=== PATIENT | female | born 1940 | race Caucasian/White ===

== ENCOUNTER 2020-12-05 14:24 | Outpatient (RCR) | payer MEDICARE, SELFPAY | END 2020-12-09 15:59 | disposition home or self-care (01) | LOC: HO.WCC 14:24 | PROVIDERS: PCP Internal Medicine; Visit Provider Physician Assistant | DX: L82.1 Other seborrheic keratosis (principal); Q66.89 Other specified congenital deformities of feet; H91.90 Unspecified hearing loss, unspecified ear; E11.9 Type 2 diabetes mellitus without complications | CPT/HCPCS: 99211 ==

== ENCOUNTER → 2021-03-02 10:42 | Outpatient (BNVA) | payer MEDICARE, SELFPAY | PROVIDERS: PCP Internal Medicine; Visit Provider Surgery Vascular Surgery | DX: I83.11 Varicose veins of right lower extremity with inflammation (principal); I89.0 Lymphedema, not elsewhere classified | CPT/HCPCS: 99212 ==

== ENCOUNTER 2021-03-14 10:10 | Outpatient (REF) | payer MEDICARE, SELFPAY ==
--- NOTE | ~2021-03-14 | US_ITS ---
EXAMINATION: BILATERAL LOWER EXTREMITY VENOUS ULTRASOUND (Reflux Exam) CLINICAL INDICATION: Lower extremity varicose veins. History of prior vein procedures. COMPARISON: Left lower extremity venous Doppler ultrasound on 09/18/2017. TECHNIQUE: Color flow triplex imaging and compression Doppler was performed to evaluate both the deep and the superficial systems bilaterally. To evaluate the superficial system, the examination was performed in the upright position. Color-flow Doppler ultrasound and compression ultrasound were utilized. In addition, maneuvers were utilized to demonstrate reflux. FINDINGS: 1. DEEP VENOUS ULTRASOUND OF THE RIGHT LOWER EXTREMITY: Common Femoral Vein: Compressible, normal respiratory variation and augmented flow. Femoral vein: Compressible, normal color flow and augmentation. Popliteal Vein: Compressible, normal augmentation. Deep Reflux: There is no evidence of reflux in the deep system in either the common femoral vein or the popliteal vein. There is no evidence of a Babcock's cyst. Notice made of a right suprapatellar knee effusion. 2. SUPERFICIAL ULTRASOUND WITH DOPPLER OF RIGHT LOWER EXTREMITY GREAT SAPHENOUS VEIN: The great saphenous vein at the junction measures 0.3 cm without evidence of reflux. The remainder of the great saphenous vein on the right is not visualized. DUPLICATED GREAT SAPHENOUS VEIN: Lateral, 0.3 cm, no reflux. SMALL SAPHENOUS VEIN: Saphenopopliteal junction: 0.3 cm; greater than 2.5 seconds of reflux. The small saphenous vein at the mid calf and distal calf is not visualized. VEIN OF GIACOMINI: None Imaged. PERFORATORS: None Imaged VARICOSITIES: Right proximal calf, 0.4 cm, greater than 1.3 seconds of reflux. Small varicosities measuring less than 3 mm are seen arising from the great saphenous vein remnant. 3. DEEP VENOUS ULTRASOUND OF THE LEFT LOWER EXTREMITY: Common Femoral Vein: Compressible, normal respiratory variation and augmented flow. Femoral vein: Compressible, normal color flow and augmentation. Popliteal Vein: Compressible, normal augmentation. Deep Reflux: There is no evidence of reflux in the deep system in either the common femoral vein or the popliteal vein. There is no evidence of a Babcock's cyst. 4. SUPERFICIAL ULTRASOUND WITH DOPPLER OF LEFT LOWER EXTREMITY GREAT SAPHENOUS VEIN: The great saphenous vein at the junction measures 0.4 cm without evidence of reflux. The remainder of the great saphenous vein on the left is not visualized. DUPLICATED GREAT SAPHENOUS VEIN: None SMALL SAPHENOUS VEIN: Saphenopopliteal junction: 0.4 cm; No evidence of reflux. The small saphenous vein at the mid calf and distal calf is not visualized. VEIN OF GIACOMINI: None Imaged. PERFORATORS: None Imaged. VARICOSITIES: Small sub-3 mm varicosities are seen involving the distal thigh and calf. US/US venous duplex LE BI IMPRESSION: 1. The right great saphenous vein is patent at the junction, however, is not seen distally within the thigh. Small sub-3 mm varicosities arise from the remnant proximal great saphenous vein. 2. Right small saphenous venous insufficiency at the junction. The right small saphenous vein is not seen at the mid calf and distal calf on the right. 3. The left great saphenous vein is not visualized beyond the junction. 4. There is a refluxing varicosity within the right proximal calf. 5. There are sub-3 mm varicosities seen throughout both legs. 6. No evidence of DVT or deep reflux.
== END 2021-03-14 10:11 | disposition home or self-care (01) ==
LOC: HO.US 10:10
PROVIDERS: Visit Provider Surgery Vascular Surgery
DX: I83.893 Varicose veins of bilateral lower extremities with other complications (principal)
CPT/HCPCS: 93970

== ENCOUNTER → 2021-03-28 11:05 | Outpatient (BNVA) | payer MEDICARE, SELFPAY | PROVIDERS: PCP Internal Medicine; Visit Provider Surgery Vascular Surgery | DX: I83.11 Varicose veins of right lower extremity with inflammation (principal) | CPT/HCPCS: 99212 ==

== ENCOUNTER → 2021-06-27 10:50 | Outpatient (BNVA) | payer MEDICARE, SELFPAY | PROVIDERS: PCP Internal Medicine; Visit Provider Surgery Vascular Surgery | DX: I89.0 Lymphedema, not elsewhere classified (principal) | CPT/HCPCS: 99212 ==

== ENCOUNTER 2021-09-21 09:23 | Outpatient (REF) | payer MEDICARE, SELFPAY ==
[2021-09-21 10:06] LABS: MANUAL DIFF FLAG NO
[2021-09-21 10:50] LABS: Basophils Absolute Auto 0.1 X10*3/uL (0.0-0.2); Basophils Percent Auto 0.8 % (0-2); Eosinophils Absolute Auto 0.3 X10*3/uL (0.0-0.4); Eosinophils Percent Auto 4.4 % (0-4); Hematocrit 35.4 % (37-47); Hemoglobin 11.5 g/dl (12.0-16.0); Imm Gran Abs Auto 0.03 X10*3/uL (0.00-0.03); Imm Gran Pct Auto 0.5 % (0.0-0.4); Lymphocytes Percent Auto 17.3 % (20-40); Mean Corpuscular HGB Conc 32.5 g/dl (31.0-35.0); Mean Corpuscular Hemoglobin 29.3 pg (27.0-33.0); Mean Corpuscular Volume 90.3 fL (80-98); Monocytes Absolute Auto 0.7 X10*3/uL (0.1-1.2); Monocytes Percent Auto 11.5 % (2-11); Neutrophils Absolute Auto 3.9 X10*3/uL (2.0-8.3); Neutrophils Percent Auto 65.5 % (45-73); Platelet Count 279 X10*3/uL (160-400); Red Blood Count 3.92 X10*6/uL (4.20-5.50); Red Cell Distribution Width 16.1 % (11.0-16.0); White Blood Count 5.9 X10*3/uL (4.8-10.8)
[2021-09-21 11:16] LABS: Appearance Urine CLOUDY; Color Urine YELLOW; Glucose Urine UA NEG (NEG); Leukocyte Esterase Urine 3+ (NEG); Nitrite Urine POS (NEG); PH 6.5 (5.0-8.0); Specific Gravity - Urine 1.015 (1.005-1.025); UACC Culture Trigger YES; Urine Blood 1+ (NEG); Urine Ketones NEG (NEG); Urine Protein TRACE MG/DL (NEG-TRACE)
[2021-09-21 11:24] LABS: Alanine Aminotransferase 10 U/L (0-31); Albumin Level 4.1 g/dL (3.5-5.0); Alkaline Phosphatase 74 U/L (39-117); Anion Gap 11 (12-20); Aspartate Amino Transferase 14 U/L (5-31); Bilirubin Total 0.6 mg/dL (0.0-1.0); Blood Urea Nitrogen 22 mg/dL (9-16); Calcium 9.9 mg/dL (8.4-10.2); Carbon Dioxide 30 mmol/L (22-29); Chloride 103 mmol/L (96-108); Cholesterol 138 mg/dL; Estimated Glomerular Filt Rate > 60; Glucose Fasting 143 mg/dL (60-99); HDL Cholesterol 44 mg/dL; LDL Cholesterol Calculated 72 mg/dl; Potassium 4.4 mmol/L (3.3-5.1); Sodium 140 mmol/L (135-145); Total Protein 6.6 g/dL (6.5-8.0); Triglycerides 111 mg/dL
[2021-09-21 11:25] LABS: Estimated Average Glucose 166 mg/dL; Hemoglobin A1c % 7.4 %
[2021-09-21 11:47] LABS: Free T4 (Free Thyroxine) 1.14 ng/dL (0.71-1.85); Thyroid Stimulating Hormone 11.23 uIU/mL (0.32-4.0); Vitamin D 25-OH Total 39.6 ng/mL (>30)
[2021-09-21 11:50] LABS: Creatinine Urine 103.24 mg/dL; Microalbum/Creatinine Ratio Ur 83.3 ug/mg cr
[2021-09-21 12:16] LABS: Bacteria Urine 2+ /LPF; Squamous Epithelial Cell Urine 1+ /LPF; WBC Urine TNTC /HPF (0-4)
== END 2021-09-21 09:24 | disposition home or self-care (01) ==
LOC: HO.LAB 09:23
PROVIDERS: PCP Internal Medicine; Visit Provider Internal Medicine
DX: E11.9 Type 2 diabetes mellitus without complications (principal); E03.9 Hypothyroidism, unspecified; E55.9 Vitamin D deficiency, unspecified; I10 Essential (primary) hypertension; E78.00 Pure hypercholesterolemia, unspecified
CPT/HCPCS: 36415; 80053; 80061; 81001; 82043; 82306; 83036; 84439; 84443; 85025; 87086; 87088; 87186

== ENCOUNTER → 2021-11-21 15:15 | Outpatient (BNVA) | payer MEDICARE, SELFPAY | PROVIDERS: PCP Internal Medicine; Visit Provider Surgery Vascular Surgery | DX: Q82.0 Hereditary lymphedema (principal) | CPT/HCPCS: 99212 ==

== ENCOUNTER → 2022-01-25 14:27 | Outpatient (BNVA) | payer MEDICARE, SELFPAY | PROVIDERS: PCP Internal Medicine; Referring Provider Internal Medicine; Visit Provider Internal Medicine | DX: I48.0 Paroxysmal atrial fibrillation (principal); I25.10 Atherosclerotic heart disease of native coronary artery without angina pectoris; I10 Essential (primary) hypertension; Q89.3 Situs inversus | CPT/HCPCS: 93005; 99202 ==

== ENCOUNTER 2022-02-22 10:00 | Outpatient (REF) | payer MEDICARE, SELFPAY ==
[2022-02-22 10:30] LABS: MANUAL DIFF FLAG NO
[2022-02-22 11:11] LABS: Basophils Absolute Auto 0.1 X10*3/uL (0.0-0.2); Basophils Percent Auto 0.8 % (0-2); Eosinophils Absolute Auto 0.2 X10*3/uL (0.0-0.4); Eosinophils Percent Auto 3.1 % (0-4); Hematocrit 38.3 % (37.0-47.0); Hemoglobin 11.9 g/dl (12.0-16.0); Imm Gran Abs Auto 0.03 X10*3/uL (0.00-0.03); Imm Gran Pct Auto 0.5 % (0.0-0.4); Lymphocytes Absolute Auto 1.1 X10*3/uL (1.2-4.9); Lymphocytes Percent Auto 17.1 % (20-40); Mean Corpuscular HGB Conc 31.1 g/dl (31.0-35.0); Mean Corpuscular Volume 93.4 fL (80.0-98.0); Mean Platelet Volume 10.4 fL (9.4-12.3); Monocytes Absolute Auto 0.7 X10*3/uL (0.1-1.2); Monocytes Percent Auto 10.7 % (2-11); Neutrophils Absolute Auto 4.5 x10*3/uL (2.0-8.3); Neutrophils Percent Auto 67.8 % (45-73); Platelet Count 250 X10*3/uL (160-400); Red Cell Distribution Width 15.1 % (11.0-16.0); White Blood Count 6.6 X10*3/uL (4.8-10.8)
[2022-02-22 11:27] LABS: Estimated Average Glucose 166 mg/dL; Hemoglobin A1c % 7.4 %
[2022-02-22 11:51] LABS: Appearance Urine TURBID; Color Urine YELLOW; Glucose Urine UA NEG (NEG); Leukocyte Esterase Urine 3+ (NEG); Nitrite Urine POS (NEG); UACC Culture Trigger YES; Urine Blood 1+ (NEG); Urine Ketones NEG (NEG); Urine Protein TRACE MG/DL (NEG-TRACE)
[2022-02-22 11:52] LABS: Alanine Aminotransferase 10 U/L (0-31); Albumin Level 4.2 g/dL (3.5-5.0); Alkaline Phosphatase 66 U/L (39-117); Anion Gap 13 (12-20); Aspartate Amino Transferase 17 U/L (5-31); Bilirubin Total 0.8 mg/dL (0.0-1.0); Blood Urea Nitrogen 24 mg/dL (9-16); Calcium 9.7 mg/dL (8.4-10.2); Carbon Dioxide 27 mmol/L (22-29); Chloride 100 mmol/L (96-108); Cholesterol 145 mg/dL; Estimated Glomerular Filt Rate > 60; Glucose Fasting 128 mg/dL (60-99); HDL Cholesterol 48 mg/dL; LDL Cholesterol Calculated 72 mg/dl; Potassium 4.3 mmol/L (3.3-5.1); Sodium 136 mmol/L (135-145); Triglycerides 127 mg/dL
[2022-02-22 12:12] LABS: WBC Urine TNTC /HPF (0-4)
[2022-02-22 12:13] LABS: Bacteria Urine 3+ /LPF; Mucus Urine 1+ /LPF
[2022-02-22 12:32] LABS: Free T4 (Free Thyroxine) 1.06 ng/dL (0.71-1.85); Thyroid Stimulating Hormone 10.22 uIU/mL (0.32-4.0)
[2022-02-22 15:05] LABS: Vitamin D 25-OH Total 36.4 ng/mL (>30)
== END 2022-02-22 10:01 | disposition home or self-care (01) ==
LOC: HO.LAB 10:00
PROVIDERS: PCP Internal Medicine; Visit Provider Internal Medicine
DX: I10 Essential (primary) hypertension (principal); E78.00 Pure hypercholesterolemia, unspecified; E03.9 Hypothyroidism, unspecified; E11.9 Type 2 diabetes mellitus without complications; E55.9 Vitamin D deficiency, unspecified
CPT/HCPCS: 36415; 80053; 80061; 81001; 81003; 82306; 83036; 84439; 84443; 85025; 87086; 87088; 87186

== ENCOUNTER → 2022-03-12 14:01 | Outpatient (REF) | payer OTHER, SELFPAY ==
--- NOTE | 2022-03-12 14:05 | CA_ITS ---
Transthoracic Echocardiogram Patient (Last, First, Middle): Jelly Downey A Gender: Female Date of : 1940 Age: 81 Procedure Date: 03/12/2022 Procedure Type: Transthoracic Echocardiogram Location: OP Height: 162.56 cm Weight: 65.77 kg BSA: 1.71 m2 Heart Rate: bpm BP: 116 / 56 mmHg [place] Man: Referring MD: Casimiro Buchanan MD Symptoms: I48.0 - Paroxysmal atrial fibrillation Study Quality: Technically Difficult ECG Rhythm: Sinus Conclusions: - The left ventricular systolic function is normal. The calculated ejection fraction is 64% by biplane method. - No obvious valvular pathology seen on this study. Findings Left Ventricle Normal left ventricular cavity size. There is mildly increased left ventricular wall thickness. The left ventricular systolic function is normal. The calculated ejection fraction is 64% by biplane method. Regional wall motion abnormalities can not be excluded due to suboptimal endocardial definition. Diastolic function is normal for age. Right Ventricle Normal right ventricular cavity size and systolic function. Atria The left atrium is normal in size. Aortic Valve The aortic valve was not well visualized. There is no aortic valve stenosis. There is mild aortic valve regurgitation. Mitral Valve The mitral valve appears normal. There is mild mitral annular calcification. There is no mitral valve regurgitation. There is no mitral valve stenosis. Pulmonic Valve The pulmonic valve was not well visualized. Tricuspid Valve There is trace tricuspid valve regurgitation. The pulmonary artery systolic pressure is normal. Great Vessels The sinuses of valsalva is normal in size. Venous The inferior vena cava is normal in size and collapses greater than 50% with inspiration. Pericardium/Pleural There is no evidence of pericardial effusion. Prior Study Comparison No significant change compared to prior study dated: 05/09/2016. Recommendations, Care & Conclusions No obvious valvular pathology seen on this study. Measurements 2D Linear Measurements IVSd: 1.33 0.6-0.9/0.6-1.0 cm LVIDd: 3.63 3.9-5.3/4.2-5.9 cm LVIDd Index: 2.12 2.4-3.2/2.2-3.1 cm/m2 LVIDs: 2.45 2.0-3.6 cm LVPWd: 1.24 0.7-1.1 cm Ao Root: 2.80 2.1-3.5 cm LA Diam: 3.80 2.7-3.8/3.0-4.0 cm LAIDs Index: 2.22 1.5-2.3 cm/m2 LV Mass: 198.12 67-162/88-224 g LV Mass Index: 115.86 43-95/49-115 g/m2 LVOT Diam: 2.00 3.0+(-)1.3 cm 2D Systolic Function EF 4C: 53.10 >55% EF 2C: 63.80 >55% EF BiP: 64.00 >55% Mitral Valve MV Pk E: 0.64 MV PK A: 0.43 MV Decel Time: 208.00 E/A: 1.50 E'Lateral: 7.94 E'Medial: 5.44 E/E' Med: 11.80 E/E' Lat: 8.10 PHT: 61.00 MVA PHT: 3.61 Decel [place]: 3.09 Aortic Valve AoV Pk Mark: 1.19 AoV Mn Mark: 0.83 AoV VTI: 0.25 AoV Pk Grad: 6.00 Aov Mn Grad: 4.00 VERONICA Cont.VTI: 1.34 LVOT LVOT Pk Mark: 0.52 LVOT Mn Mark: 0.35 LVOT VTI: 0.11 LVOT Pk Grad: 1.00 LVOT Mn Grad: 1.00 LVOT Diam: 2.00 LVOT Area: 3.14 Diastolic Function MV Pk E: 0.64 MV Pk A: 0.43 E/A: 1.50 E'Medial: 5.44 E/E' Med: 11.80 E' Laterial: 7.94 E/E' Lat: 8.10 Tricuspid Valve TR Pk Mark: 1.61 TR Pk Grad: 10.00 RA Press: 3.00 RVSP: 13.00 Great Vessels Aorta Ao Root-2D: 2.80 2.0-3.7 cm Sinus of Valsalva: 2.80 2.0-3.5 cm Updated in Other Vendor System with Status of Final Casimiro Buchanan MD electronically signed on 03/12/2022 4:34:34 PM with status of Final
--- NOTE | 2022-03-12 14:05 | HM_ITS ---
* Total monitoring time 3 days and 1 hour. * Underlying rhythm is sinus. Average rate 60/Min. * Atrial fibrillation about 4.8% the time. Longest episode about 3 hours and 27 minutes. Slightly rapid rates but nothing profound. However, there is also a lot of artifact in the strips and hence difficult to assess. * Occasional supraventricular ectopy with minimal burden. * Rare ventricular ectopy. * No patient events. MTDD
== END ==
LOC: HO.CARD 14:01
PROVIDERS: PCP Internal Medicine; Visit Provider Internal Medicine
DX: I48.0 Paroxysmal atrial fibrillation (principal); Q89.3 Situs inversus
CPT/HCPCS: 93242; 93306

== ENCOUNTER → 2022-04-03 13:51 | Outpatient (BNVA) | payer MEDICARE, SELFPAY | PROVIDERS: PCP Internal Medicine; Referring Provider Internal Medicine; Visit Provider Internal Medicine | DX: I48.0 Paroxysmal atrial fibrillation (principal); I10 Essential (primary) hypertension; I25.10 Atherosclerotic heart disease of native coronary artery without angina pectoris; Q89.3 Situs inversus; Z79.01 Long term (current) use of anticoagulants; Z79.899 Other long term (current) drug therapy | CPT/HCPCS: 99212 ==

== ENCOUNTER 2022-11-20 09:36 | Outpatient (REF) | payer OTHER, SELFPAY ==
[2022-11-20 10:01] LABS: MANUAL DIFF FLAG NO
[2022-11-20 10:34] LABS: Basophils Absolute Auto 0.1 X10*3/uL (0.0-0.2); Basophils Percent Auto 0.9 % (0-2); Eosinophils Absolute Auto 0.2 X10*3/uL (0.0-0.4); Eosinophils Percent Auto 3.7 % (0-4); Hemoglobin 13.1 g/dl (12.0-16.0); Imm Gran Abs Auto 0.02 X10*3/uL (0.00-0.03); Imm Gran Pct Auto 0.4 % (0.0-0.4); Lymphocytes Absolute Auto 1.1 X10*3/uL (1.2-4.9); Lymphocytes Percent Auto 20.9 % (20-40); Mean Corpuscular HGB Conc 32.8 g/dl (31.0-35.0); Mean Corpuscular Volume 91.7 fL (80.0-98.0); Mean Platelet Volume 9.9 fL (9.4-12.3); Monocytes Absolute Auto 0.6 X10*3/uL (0.1-1.2); Neutrophils Absolute Auto 3.3 x10*3/uL (2.0-8.3); Neutrophils Percent Auto 62.1 % (45-73); Platelet Count 243 X10*3/uL (160-400); Red Blood Count 4.36 X10*6/uL (4.20-5.50); Red Cell Distribution Width 14.6 % (11.0-16.0); White Blood Count 5.4 X10*3/uL (4.8-10.8)
[2022-11-20 11:00] LABS: Appearance Urine Turbid; Color Urine Yellow; Glucose Urine UA Negative (Negative); Leukocyte Esterase Urine Large (3+) (Negative); Nitrite Urine Positive (Negative); PH 5.5 (5.0-9.0); Specific Gravity - Urine 1.015 (1.005-1.025); UMIC TRIGGER UACC YES; Urine Blood Small (1+) (Negative); Urine Ketones Negative (Negative); Urine Protein 30 (1+) mg/dL (Neg-Trace)
[2022-11-20 11:13] LABS: Bacteria Urine 4+ (None Seen); RBC Urine 0-2 /HPF (0-2); UACC Culture Trigger YES; WBC Urine >50 /HPF (0-5)
[2022-11-20 14:07] LABS: Alanine Aminotransferase 11 U/L (0-31); Albumin Level 4.2 g/dL (3.5-5.0); Alkaline Phosphatase 76 U/L (39-117); Anion Gap 14 (12-20); Aspartate Amino Transferase 13 U/L (5-31); Bilirubin Total 0.8 mg/dL (0.0-1.0); Blood Urea Nitrogen 23 mg/dL (9-16); Calcium 9.4 mg/dL (8.4-10.2); Carbon Dioxide 27 mmol/L (22-29); Chloride 101 mmol/L (96-108); Cholesterol 148 mg/dL; Estimated Glomerular Filt Rate > 60; Free T4 (Free Thyroxine) 1.31 ng/dL (0.71-1.85); Glucose Fasting 171 mg/dL (60-99); HDL Cholesterol 54 mg/dL; LDL Cholesterol Calculated 69 mg/dl; Potassium 4.2 mmol/L (3.3-5.1); Sodium 138 mmol/L (135-145); Thyroid Stimulating Hormone 2.99 uIU/mL (0.32-4.0); Total Protein 6.7 g/dL (6.5-8.0); Triglycerides 127 mg/dL; Vitamin D 25-OH Total 34.3 ng/mL (>30)
[2022-11-21 22:38] LABS: Thyroid Peroxidase Antibodies 1 IU/mL (<9)
[2022-11-22 03:04] LABS: Triiodothyronine T3 Free 3.1 pg/mL (2.3-4.2)
== END 2022-11-20 09:37 | disposition home or self-care (01) ==
LOC: HO.LAB 09:36
PROVIDERS: PCP Internal Medicine; Visit Provider Internal Medicine
DX: E03.9 Hypothyroidism, unspecified (principal); E78.00 Pure hypercholesterolemia, unspecified; E55.9 Vitamin D deficiency, unspecified; I10 Essential (primary) hypertension
CPT/HCPCS: 36415; 80053; 80061; 81001; 82306; 84439; 84443; 84481; 85025; 86376; 87086; 87088; 87186

== ENCOUNTER 2023-02-27 09:34 | Outpatient (REF) | payer OTHER, SELFPAY ==
[2023-02-27 09:55] LABS: MANUAL DIFF FLAG NO
[2023-02-27 10:40] LABS: Appearance Urine Turbid; Color Urine Dark Yellow; Glucose Urine UA Negative (Negative); Leukocyte Esterase Urine Large (3+) (Negative); Nitrite Urine Positive (Negative); PH 5.5 (5.0-9.0); UMIC TRIGGER UACC YES; Urine Blood Small (1+) (Negative); Urine Ketones Negative (Negative); Urine Protein 30 (1+) mg/dL (Neg-Trace)
[2023-02-27 10:48] LABS: Basophils Absolute Auto 0.1 X10*3/uL (0.0-0.2); Basophils Percent Auto 0.8 % (0-2); Eosinophils Absolute Auto 0.3 X10*3/uL (0.0-0.4); Eosinophils Percent Auto 4.4 % (0-4); Hematocrit 39.7 % (37.0-47.0); Hemoglobin 12.9 g/dl (12.0-16.0); Imm Gran Abs Auto 0.03 X10*3/uL (0.00-0.03); Imm Gran Pct Auto 0.5 % (0.0-0.4); Lymphocytes Absolute Auto 1.1 X10*3/uL (1.2-4.9); Lymphocytes Percent Auto 18.6 % (20-40); Mean Corpuscular HGB Conc 32.5 g/dl (31.0-35.0); Mean Corpuscular Hemoglobin 30.7 pg (27.0-33.0); Mean Corpuscular Volume 94.5 fL (80.0-98.0); Mean Platelet Volume 10.4 fL (9.4-12.3); Monocytes Absolute Auto 0.8 X10*3/uL (0.1-1.2); Neutrophils Absolute Auto 3.7 x10*3/uL (2.0-8.3); Neutrophils Percent Auto 62.7 % (45-73); Platelet Count 229 X10*3/uL (160-400); Red Cell Distribution Width 14.3 % (11.0-16.0); White Blood Count 5.9 X10*3/uL (4.8-10.8)
[2023-02-27 10:55] LABS: Estimated Average Glucose 163 mg/dL; Hemoglobin A1c % 7.3 %
[2023-02-27 11:04] LABS: Bacteria Urine 3+ (None Seen); Hyaline Casts Urine 0-2 /LPF (0-2); UACC Culture Trigger YES; WBC Clumps Urine Present; WBC Urine >50 /HPF (0-5)
[2023-02-27 11:50] LABS: Alanine Aminotransferase 9 U/L (0-31); Albumin Level 4.2 g/dL (3.5-5.0); Alkaline Phosphatase 71 U/L (39-117); Anion Gap 12 (12-20); Aspartate Amino Transferase 13 U/L (5-31); Blood Urea Nitrogen 22 mg/dL (9-16); Calcium 9.6 mg/dL (8.4-10.2); Carbon Dioxide 30 mmol/L (22-29); Chloride 101 mmol/L (96-108); Cholesterol 139 mg/dL; Estimated Glomerular Filt Rate > 60; Glucose Fasting 144 mg/dL (60-99); HDL Cholesterol 48 mg/dL; LDL Cholesterol Calculated 65 mg/dl; Potassium 4.2 mmol/L (3.3-5.1); Sodium 139 mmol/L (135-145); Total Protein 6.6 g/dL (6.5-8.0); Triglycerides 132 mg/dL
[2023-02-27 12:18] LABS: Folate 16.7 ng/mL (> or = 4.0); Free T4 (Free Thyroxine) 1.41 ng/dL (0.71-1.85); Thyroid Stimulating Hormone 1.63 uIU/mL (0.32-4.0); Vitamin B12 293 pg/mL (200-900); Vitamin D 25-OH Total 42.2 ng/mL (>30)
[2023-03-01 06:34] LABS: Thyroglobulin <0.1 ng/mL; Thyroglobulin Antibodies 60 IU/mL (< or = 1); Thyroid Peroxidase Antibodies 1 IU/mL (<9)
== END 2023-02-27 09:35 | disposition home or self-care (01) ==
LOC: HO.LAB 09:34
PROVIDERS: PCP Internal Medicine; Visit Provider Internal Medicine
DX: E55.9 Vitamin D deficiency, unspecified (principal); R79.89 Other specified abnormal findings of blood chemistry; I10 Essential (primary) hypertension; E78.00 Pure hypercholesterolemia, unspecified; E11.9 Type 2 diabetes mellitus without complications; E53.8 Deficiency of other specified B group vitamins; R82.90 Unspecified abnormal findings in urine
CPT/HCPCS: 36415; 80053; 80061; 81001; 82306; 82607; 82746; 83036; 84432; 84439; 84443; 85025; 86376; 86800; 87086; 87088; 87186

== ENCOUNTER 2023-03-12 13:31 | Outpatient (REF) | payer OTHER, SELFPAY ==
--- NOTE | ~2023-03-12 | MM_ITS ---
EXAMINATION: BONE DENSITOMETRY CLINICAL INDICATION: Menopause. COMPARISON: None (current study represents initial baseline exam). TECHNIQUE: Using a [employer] DXA System (software version: 13.1) manufactured by [employer], dual-energy x-ray absorptiometry was performed of the lumbar spine and left hip. The images are of good technical quality. Summary results are attached. FINDINGS: AP SPINE L1-L4: BMD 1.364 g/cm2, Z-score 3.6, T-score 1.5, normal. LEFT FEMUR, NECK: BMD 0.817 g/cm2, Z-score 0.9, T-score -1.6, osteopenia. LEFT FEMUR, TOTAL: BMD 0.866 g/cm2, Z-score 1.2, T-score -1.1, osteopenia. IDENTIFIED RISK FACTORS: Menopause, family history (parent hip fracture), history of fracture (adult). HISTORY OF FRACTURE: Wrist. MEDICATIONS: Vitamin D. MM/XR DEXA axial skeleton IMPRESSION: 1. DIAGNOSIS: Osteopenia based on the lowest T-score value of -1.6 in the femoral neck applying World Health Organization criteria. 2. 10-YEAR FRACTURE RISK PREDICTION, FRAX: Major osteoporotic fracture (clinical spine, forearm, hip or shoulder) 18.5%. Hip fracture 4.8%. 3. Treatment Recommendations: NOF guidelines recommend consideration for treatment in postmenopausal women and men age 50 and older presenting with the following: -A hip or vertebral (clinical or morphometric) fracture. -T-score less than or equal to -2.5 at the femoral neck or spine after appropriate evaluation to exclude secondary causes. -Low bone mass at the hip or spine and a 10-year fracture probability by FRAX of greater than or equal to 3% for hip fracture or greater than or equal to 20% for major osteoporotic fracture based on the [place] adapted WHO algorithm. 4. Other Recommendations: All treatment decisions require clinical judgment and consideration of individual patient factors, including patient preferences, comorbidities, previous drug use, risk factors not captured in the FRAX model (e.g. frailty, falls, vitamin D deficiency, increased bone turnover, interval significant decline in bone density) and possible under or overestimation of fracture risk by FRAX. Additional medical evaluation for secondary cause of low bone mineral density may be appropriate. FUTURE SCAN RECOMMENDATION: People with diagnosed cases of osteoporosis or at high risk for fracture should have regular bone mineral density tests. For patients eligible for Medicare, routine testing is allowed once every 2 years. The testing frequency can be increased to one year for patients who have rapidly progressing disease, those who are receiving or discontinuing medical therapy to restore bone mass, or have additional risk factors.
== END 2023-03-12 13:32 | disposition home or self-care (01) ==
LOC: HO.MAMMO 13:31
PROVIDERS: PCP Internal Medicine; Visit Provider Internal Medicine
DX: Z13.820 Encounter for screening for osteoporosis (principal); Z78.0 Asymptomatic menopausal state
CPT/HCPCS: 77080

== ENCOUNTER 2023-06-10 10:22 | Outpatient (AMB) | payer OTHER, SELFPAY ==
--- NOTE | 2023-06-10 10:39 | MHC.OFFVIS ---
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 Required: No Allergies Sulfa (Sulfonamide Antibiotics) [SULFA(SULFONAMIDE ANTIBIOTICS)] Allergy (Severe, Verified 06/10/23 10:40) RASH latex [Latex] Allergy (Mild, Verified 06/10/23 10:40) RASH Medication List - Last Reconciled 06/10/23 by Casimiro Buchanan MD apixaban (Eliquis) 2.5 mg PO BID atorvastatin 20 mg PO DAILY betamethasone, augmented 0.05 % topical cholecalciferol (vitamin D3) 25 mcg PO DAILY citalopram 40 mg PO DAILY 90 days hydrochlorothiazide 12.5 mg PO QAM levothyroxine 88 mcg PO QAM 90 days lorazepam 0.5 mg PO DAILY PRN 30 days metformin ER 500 mg PO QPM metoprolol succinate ER 25 mg PO DAILY omeprazole 20 mg PO BID oxybutynin chloride ER 15 mg PO DAILY HPI HPI Comments History of Present Illness Details Jelly returns for follow-up. She has a background of situs inversus/dextrocardia. Few years ago, she had an NSTEMI in the setting of gastroenteritis. Then we had seen her for a while but more recently had atrial fibrillation for which she was put on Eliquis. Was also on some beta-blockers. Then it seems that she had chest pain that led to evaluation at [facility] and subsequently transferred to [facility]. She underwent pharmacological stress test which was unremarkable and she was discharged home. Patient states she has not had any further chest pain but her sister states she still gets some off and on. However, patient totally denies this. She would rather have nothing done overall. [facility] Medical History (Updated 05/13/23 @ 11:03 by WAYLON Feldman) Anxiety Chronic ulcer of right ankle Chronic venous insufficiency COPD (chronic obstructive pulmonary disease) Coronary artery disease Diabetes mellitus Hypothyroidism Lymphedema Overactive bladder Pure hypercholesterolemia Situs inversus Ulcer of right ankle Vitamin D deficiency Surgical History H/O left wrist surgery History of cholecystectomy History of hernia repair Status post laser ablation of incompetent vein (~2014) Family History Father No problems noted. Mother Hypertension Family history of thyroid problem Social History Housing: Assisted Living Facility Alcohol intake: never Patient Tobacco Use Status: Never used Tobacco Second Hand Smoke Exposure: Yes service: No Current occupational status: retired Cognitive needs: Yes Hearing needs: Yes Vision needs: Yes Review of Systems Const Denies weakness ENT Denies dizziness Card Denies chest pain, Denies chest pain with activity, Denies syncope, Denies rapid heart rate, Denies pedal edema, Denies edema, Denies leg edema, Denies lightheadedness, Denies palpitations, Denies dyspnea, Denies dyspnea on exertion and Denies orthopnea Resp Denies cough, Denies dyspnea and Denies dyspnea on exertion GI Denies hematochezia and Denies change in stool character Musc Denies abnormal gait, Denies muscle cramps, Denies muscle weakness, Denies numbness, Denies radiating pain into limb and Denies tingling Neuro Denies abnormal gait, Denies dizziness, Denies syncope, Denies numbness, Denies tingling and Denies weakness Endo Denies palpitations Physical Exam Vital Signs: Last Vital Signs Pulse 77 06/10/23 10:40 BP 130/72 06/10/23 10:40 BMI result Body Mass Index 23.0 Const General: comfortable and no acute distress Orientation/consciousness: patient oriented x3 HEENT Other: Unremarkable Head: Yes normal to inspection Neck Neck: Yes normal visual inspection Chest Chest palpation & inspection: normal inspection of the chest Resp Auscultation: clear to auscultation bilaterally Cardio Palpation: normal PMI Heart sounds: S1 normal heart sound present, S2 normal heart sound present, no gallops, no murmurs and no rubs GI Palpation (GI): Soft to palpation Back/Spine/Pelvis Other: unremarkable Skin General skin exam: no rashes or lesions noted Neuro General: patient oriented x3 Extrem General: Yes normal to inspection Psych Mental Status: mental status grossly normal Office Procedures EKG Details: Sinus rhythm at 77/Min; left ventricular hypertrophy/repolarization type pattern. Cannot exclude old lateral infarct but could also be from her cardiac position due to dextrocardia. [id number], Complete Assessment & Plan Assessment & Plan (1) Atherosclerotic cardiovascular disease: Code(s): I25.10 - Atherosclerotic heart disease of [place] coronary artery without angina pectoris Plan: In the perfusion imaging from [facility] from April 2023, no evidence of fixed or reversible perfusion defects after regadenoson. Her EKG does look abnormal and she also had elevated troponins. Hence she still has probability of underlying CAD. Any case, discussed about her about cardiac catheterization but she absolutely does not want anything done. She would rather just leave things the way they are. Also discussed with sister who accompanied her for the appointment. Per patient preference, she agrees we will pursue anything aggressive. Continue beta-blockers, statins. We will add sublingual nitroglycerin to be taken as needed. If any acute chest pain episodes, still recommended that they call 911. (2) PAF (paroxysmal atrial fibrillation): Code(s): I48.0 - Paroxysmal atrial fibrillation Plan: Continue beta-blockers and Eliquis. (3) Essential hypertension: Code(s): I10 - Essential (primary) hypertension Plan: Stable. No changes. 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 No specific management. Plan Discussed plan with sister who came for appointment. Medications: New nitroglycerin do not exceed 3 doses per episode 0.4 mg sublingual Q5M PRN 30 tabs 5RF chest pain R07.2 - Precordial pain Coding Level of Care Code Est Pt Level 4 (23789) Diagnoses Atherosclerotic cardiovascular disease I25.10 PAF (paroxysmal atrial fibrillation) I48.0 Essential hypertension I10 Situs inversus with dextrocardia Q89.3 CPT Codes EKG - CPT: 92358-[id number], Complete ([id number])
[2023-06-10 10:40] VITALS: BP 130/72; PULSE 77; BMI 23.0
== END 2023-06-10 11:06 | disposition home or self-care (01) ==
PROVIDERS: Visit Provider Internal Medicine
DX: I25.10 Atherosclerotic heart disease of native coronary artery without angina pectoris (principal); I48.0 Paroxysmal atrial fibrillation; I10 Essential (primary) hypertension; Q89.3 Situs inversus
CPT/HCPCS: 93010; 99214

== ENCOUNTER → 2023-06-10 10:22 | Outpatient (BNVA) | payer OTHER, SELFPAY | PROVIDERS: Visit Provider Internal Medicine | DX: I10 Essential (primary) hypertension (principal); Q89.3 Situs inversus; I25.10 Atherosclerotic heart disease of native coronary artery without angina pectoris; I48.0 Paroxysmal atrial fibrillation | CPT/HCPCS: 93005; 99212 ==

== ENCOUNTER 2023-07-02 09:36 | Outpatient (REF) | payer OTHER, SELFPAY ==
[2023-07-02 09:56] LABS: MANUAL DIFF FLAG NO
[2023-07-02 11:00] LABS: Basophils Absolute Auto 0.1 X10*3/uL (0.0-0.2); Eosinophils Absolute Auto 0.2 X10*3/uL (0.0-0.4); Eosinophils Percent Auto 3.4 % (0-4); Hematocrit 37.9 % (37.0-47.0); Imm Gran Abs Auto 0.01 X10*3/uL (0.00-0.03); Imm Gran Pct Auto 0.2 % (0.0-0.4); Lymphocytes Absolute Auto 1.1 X10*3/uL (1.2-4.9); Lymphocytes Percent Auto 17.9 % (20-40); Mean Corpuscular HGB Conc 31.7 g/dl (31.0-35.0); Mean Corpuscular Hemoglobin 29.5 pg (27.0-33.0); Mean Corpuscular Volume 93.1 fL (80.0-98.0); Mean Platelet Volume 10.5 fL (9.4-12.3); Monocytes Absolute Auto 0.7 X10*3/uL (0.1-1.2); Monocytes Percent Auto 11.6 % (2-11); Neutrophils Percent Auto 65.9 % (45-73); Platelet Count 258 X10*3/uL (160-400); Red Blood Count 4.07 X10*6/uL (4.20-5.50); Red Cell Distribution Width 14.2 % (11.0-16.0); White Blood Count 6.1 X10*3/uL (4.8-10.8)
[2023-07-02 11:06] LABS: Estimated Average Glucose 148 mg/dL; Hemoglobin A1c % 6.8 %
[2023-07-02 11:19] LABS: Alanine Aminotransferase 9 U/L (0-31); Albumin Level 3.9 g/dL (3.5-5.0); Alkaline Phosphatase 65 U/L (39-117); Anion Gap 16 (12-20); Aspartate Amino Transferase 13 U/L (5-31); Bilirubin Total 0.6 mg/dL (0.0-1.0); Blood Urea Nitrogen 21 mg/dL (9-16); Calcium 9.8 mg/dL (8.4-10.2); Carbon Dioxide 25 mmol/L (22-29); Chloride 101 mmol/L (96-108); Cholesterol 131 mg/dL; Estimated Glomerular Filt Rate > 60; Glucose Fasting 132 mg/dL (60-99); HDL Cholesterol 48 mg/dL; LDL Cholesterol Calculated 62 mg/dl; Potassium 4.3 mmol/L (3.3-5.1); Sodium 138 mmol/L (135-145); Total Protein 6.7 g/dL (6.5-8.0); Triglycerides 105 mg/dL
[2023-07-02 11:22] LABS: Free T4 (Free Thyroxine) 1.17 ng/dL (0.71-1.85); Vitamin D 25-OH Total 40.9 ng/mL (>30)
[2023-07-02 11:53] LABS: Appearance Urine Cloudy; Color Urine Yellow; Glucose Urine UA Negative (Negative); Leukocyte Esterase Urine Large (3+) (Negative); Nitrite Urine Positive (Negative); UMIC TRIGGER UACC YES; Urine Blood Small (1+) (Negative); Urine Ketones Negative (Negative); Urine Protein Trace mg/dL (Neg-Trace)
[2023-07-02 12:23] LABS: Creatinine Urine 62.88 mg/dL; Microalbum/Creatinine Ratio Ur 147.9 ug/mg cr
[2023-07-02 13:06] LABS: Bacteria Urine 4+ (None Seen); Hyaline Casts Urine 0-2 /LPF (0-2); UACC Culture Trigger YES; WBC Clumps Urine Present; WBC Urine >50 /HPF (0-5)
== END 2023-07-02 09:37 | disposition home or self-care (01) ==
LOC: HO.LAB 09:36
PROVIDERS: PCP Internal Medicine; Visit Provider Internal Medicine
DX: E55.9 Vitamin D deficiency, unspecified (principal); E03.9 Hypothyroidism, unspecified; E78.00 Pure hypercholesterolemia, unspecified; E11.9 Type 2 diabetes mellitus without complications; I10 Essential (primary) hypertension; R30.0 Dysuria
CPT/HCPCS: 36415; 80053; 80061; 81001; 81003; 82043; 82306; 83036; 84439; 84443; 85025; 87086; 87088; 87186

== ENCOUNTER 2023-07-05 14:09 | Outpatient (AMB) | payer OTHER, SELFPAY ==
[2023-07-05 14:11] VITALS: BP 142/78; PULSE 83; O2SAT 96; BMI 22.8
--- NOTE | 2023-07-05 14:11 | MHC.PC.OV ---
Vital Signs 07/05/23 14:11 Height 5 ft 4 in Weight 133 lb BMI 22.8 BP 142/78 H Blood Pressure Location Lt brachial Position Sitting Pulse 83 Pulse Source Pulse Oximeter Pulse Oximetry (%) 96 Oxygen Delivery Method Room Air Intake Visit Reasons: DM, hypothyroidism, situs inversus, PAF Peeled Potato Inspector Required: No Accompanied by: Self / Same As Patient Allergies Sulfa (Sulfonamide Antibiotics) [SULFA(SULFONAMIDE ANTIBIOTICS)] Allergy (Severe, Verified 07/05/23 14:22) RASH latex [Latex] Allergy (Mild, Verified 07/05/23 14:22) RASH Medication List - Last Reconciled 07/05/23 by David Gerard MD atorvastatin 20 mg PO DAILY betamethasone, augmented 0.05 % topical cholecalciferol (vitamin D3) 25 mcg PO DAILY citalopram 40 mg PO DAILY 90 days Eliquis (apixaban) 2.5 mg (1/2 x 5 mg) PO BID 90 days NS hydrochlorothiazide 12.5 mg PO QAM levothyroxine 88 mcg PO QAM 90 days lorazepam 0.5 mg PO DAILY PRN 30 days metformin ER 500 mg PO QPM metoprolol succinate ER 25 mg PO DAILY nitroglycerin 0.4 mg sublingual Q5M PRN omeprazole 20 mg PO BID oxybutynin chloride ER 15 mg PO DAILY Tobacco use date assessed: 07/05/23 Fall risk assessment: No Falls in past year Last assessed Fall Risk: 07/05/23 Dental Screening Dental Screen Date: 07/05/23 Did you have a dental visit in the last 12 months?: Yes Did you have a dental problem in the last 6 months where you did not have access to dental care?: No Was dental information given to patient?: Patient has dentist HPI DM, hypothyroidism, situs inversus, PAF HPI Details Patient comes in today for her follow up visit States that she feels okay She presented to the ER at [facility] a few months ago for chest pains and was subsequently transferred to [facility] for further evaluation and management of NSTEMI She eventually underwent cardiac stress testing, which came out normal She denies any headaches or dizziness Denies any recurrence of her chest pains and states that she's had no increased SOB lately No nausea/vomiting, no abdominal pain No change in bowel habits noted Had her follow up labs done a few days ago - to discuss her results Patient's sister states that she still gets up quite often in the middle of the night (several times) to use the bathroom She has noticed that her Oxybutynin ER seems to be given to patient in the morning along with all of her other meds and is wondering if this can be dosed at nighttime to help her symptoms better since that is when she gets up to use the bathroom more often PFSH Medical History Anxiety Chronic ulcer of right ankle Chronic venous insufficiency COPD (chronic obstructive pulmonary disease) Coronary artery disease Diabetes mellitus Hypothyroidism Lymphedema Overactive bladder Pure hypercholesterolemia Situs inversus Ulcer of right ankle Vitamin D deficiency Surgical History H/O left wrist surgery History of cholecystectomy History of hernia repair Status post laser ablation of incompetent vein (~2014) Family History Father No problems noted. Mother Hypertension Family history of thyroid problem Social History Housing: Assisted Living Facility Alcohol intake: never Patient Tobacco Use Status: Never used Tobacco e-Cigarette/Vaping Use: Never Used Second Hand Smoke Exposure: Yes service: No Current occupational status: retired Cognitive needs: Yes Hearing needs: Yes Vision needs: Yes Questionnaire PHQ-9 Over the last 2 weeks, how often have you been bothered by any of the following problems? 1. Little interest or pleasure in doing things: not at all 2. Feeling down, depressed, or hopeless: not at all 3. Trouble falling or staying asleep, or sleeping too much: not at all 4. Feeling tired or having little energy: not at all 5. Poor appetite or overeating: not at all 6. Feeling bad about yourself - or that you are a failure or have let yourself or your family down: not at all 7. Trouble concentrating on things, such as reading the newspaper or watching television: not at all 8. Moving or speaking so slowly that other people could have noticed. Or the opposite - being so fidgety or restless that you have been moving around a lot more than usual: not at all 9. Thoughts that you would be better off or of hurting yourself in some way: not at all Total score: 0 Depression Screening Interpretation: Negative 61030 - PHQ-9 Billing: Yes Source: Developed by Drs. Gabriel Duke, Stephanie Ayala, Mihai Gilliland and colleagues, with an educational christina from [employer]. Thrive Questionnaire Date Thrive assessed: 07/05/23 I am a: Patient What is your living situation today?: I have a steady place to live Within the past 12 months, did the food you bought not last and you didn't have the money to get more?: Never true Within the past 12 months, did you worry whether your food would run out before you got money to buy more?: Never true Do you have trouble paying for medicines?: No Do you have trouble getting transportation to medical appointments?: No Do you have trouble paying your heating and electricity bill?: No Do you have trouble taking care of your child, family member or friend?: No Do you have trouble with day-to-day activities such as bathing, preparing meals, shopping, managing finances, etc.?: No Are you currently unemployed and looking for a job?: No Are you interested in more education?: No Please select the resources that you would like help with: None Currently or been in a relationship where the following occur: no concerns reported AUDIT C Alcohol Use Questionnaire (AUDIT-C) 1. How often do you have a drink containing alcohol?: Never 3. How often do you have six or more drinks on one occasion?: Never Total Score: 0 Score Reviewed/Action Taken: Yes JOYCELYN-7 AMB Questionnaire JOYCELYN-7 Date JOYCELYN - 7 assessed: 07/05/23 Feeling nervous, anxious, or on edge: 0 = Not at all Not being able to stop or control worryin = Not at all Worrying too much about different things: 0 = Not at all Trouble relaxin = Not at all Being so restless that it is hard to sit still: 0 = Not at all Becoming easily annoyed or irritable: 0 = Not at all Feeling afraid as if something awful might happen: 0 = Not at all Total JOYCELYN-7 score (0-4 normal; 5-9 mild; 10-14 moderate; 15-21 severe): 0 Source: Developed by Drs. Gabriel Duke, Stephanie Ayala, Mihai Gilliland and colleagues, with an educational christina from [employer]. Review of Systems Const Denies chills, Reports difficulty sleeping (at times - Lorazepam helps), Denies fatigue, Denies fever(s) and Denies headache(s) ENT Denies dysphagia, Denies dizziness, Denies otalgia, Denies headache(s), Denies neck pain and Denies sore throat Card Denies chest pain, Denies palpitations and Denies dyspnea Resp Denies chest congestion, Denies cough, Denies dyspnea and Denies wheezing GI Denies abdominal pain, Reports constipation (on and off - better controlled lately with fiber supplements), Denies dysphagia, Denies heartburn, Reports diarrhea (on and off - better controlled lately with fiber supplements), Denies nausea and Denies vomiting Denies difficulty voiding, Reports nocturia, Denies dysuria and Reports urinary incontinence (occasionally) Musc Denies back pain and Denies neck pain Skin/Breast Denies rash Neuro Denies dizziness and Denies headache(s) Psych Denies anxiety and Denies depression Endo Denies fatigue and Denies palpitations Jose/Lymph Details: on and off swelling of both lower extremities - worse on the left leg Denies easy bruising Aller/Immun Denies wheezing Physical exam (Primary Care) Vital Signs: Last Vital Signs Pulse 83 07/05/23 14:11 BP 142/78 H 07/05/23 14:11 Pulse Ox 96 07/05/23 14:11 Oxygen Delivery Method Room Air 07/05/23 14:11 BMI result Body Mass Index 22.8 Tobacco/Smoking Status: Tobacco use Status Tobacco use date assessed 07/05/23 07/05/23 14:16 Patient Tobacco Use Status Never used Tobacco 07/05/23 14:16 e-Cigarette/Vaping Use Never Used 07/05/23 14:16 PHQ-9: PHQ-9 Score PHQ-9: Total score 0 07/05/23 14:34 Depression Screening Interpretation: Negative Thrive Assessment: Date of Thrive Assessment Date Thrive assessed 07/05/23 07/05/23 14:16 Currently or been in a relationship where the following occur: no concerns reported Const General: no acute distress and alert HENMT Ears: TM's normal bilaterally and EAC's normal Throat: Yes posterior oropharynx normal and Yes tonsils normal (no TP congestion noted) Neck Neck: Yes no lymphadenopathy and Yes supple Thyroid: Thyroid normal Resp Auscultation: clear to auscultation bilaterally, no rales and no wheezes Cardio Other: * 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 INVERSUS Rate: regular rate Rhythm: abnormal rhythm irregularly irregular Heart sounds: no murmurs GI Palpation (GI): Soft to palpation and nontender Auscultation: normal bowel sounds General: Yes no CVA tenderness Back/Spine/Pelvis Back: no CVA tenderness Thoracic/Lumbar Spine: thoracic and lumbar spine normal to inspection Skin Rashes: no rashes Neuro Gait exam (Neuro): Assistive device used (walker) Extrem General: No clubbing, No cyanosis and Yes edema (2+ edema on the right lower extremity; trace edema on the left side) Results Reviewed Results Reviewed: Laboratory Tests 07/02/23 07/02/23 07/02/23 09:53 09:53 09:55 WBC 6.1 Hgb 12.0 Hct 37.9 Plt Count 258 Sodium Potassium Creatinine Estimated GFR Fasting Glucose Hemoglobin A1c % Calcium AST ALT Triglycerides Cholesterol LDL Cholesterol, Calc HDL Cholesterol 25-OH Vitamin D Total TSH Free T4 Ur Specific [place] 1.010 Urine Protein Trace Urine Glucose (UA) Negative Urine Blood Small (1+) H Microalb/Creat Ratio 147.9 07/02/23 07/02/23 09:55 09:55 WBC Hgb Hct Plt Count Sodium 138 Potassium 4.3 Creatinine 0.69 Estimated GFR > 60 Fasting Glucose 132 H Hemoglobin A1c % 6.8 Calcium 9.8 AST 13 ALT 9 Triglycerides 105 Cholesterol 131 LDL Cholesterol, Calc 62 HDL Cholesterol 48 25-OH Vitamin D Total 40.9 TSH 1.90 Free T4 1.17 Ur Specific [place] Urine Protein Urine Glucose (UA) Urine Blood Microalb/Creat Ratio Assessment and Plan Assessment & Plan (1) Pure hypercholesterolemia: Code(s): E78.00 - Pure hypercholesterolemia, unspecified Plan: Results of her labs done a few days ago reviewed and discussed with patient Reinforced low cholesterol diet Continue Atorvastatin 20 mg QD Will recheck labs in 4 months for follow-up (2) PAF (paroxysmal atrial fibrillation): Code(s): I48.0 - Paroxysmal atrial fibrillation Plan: Patient is currently still in AF but remains rate-controlled Continue Metoprolol ER 25 mg QD Continue Eliquis 2.5 mg BID for thromboembolism prophylaxis Follow up with cardiology as scheduled (3) Coronary artery disease: Comment: S/P NSTEMI in 2015 and in 04/2023 Code(s): I25.10 - Atherosclerotic heart disease of [place] coronary artery without angina pectoris Qualifiers: Associated angina: without angina Coronary Disease-Associated Artery/Lesion type: [place] artery [place] vs. transplanted heart: [place] heart Qualified Code(s): I25.10 - Atherosclerotic heart disease of [place] coronary artery without angina pectoris Plan: Is currently asymptomatic Continue Metoprolol ER 25 mg QD; Aspirin 81 mg was discontinued by cardiology previously Apparently had another NSTEMI episode in April 2023; pharmacologic stress testing done a couple of months ago came out normal Follow up with cardiology as scheduled - was last seen just under a month ago (4) Hypothyroidism: Code(s): E03.9 - Hypothyroidism, unspecified Qualifiers: Hypothyroidism type: acquired Qualified Code(s): E03.9 - Hypothyroidism, unspecified Plan: Her TSH and free T4 were both normal on her recent labs done a few days ago TPO Ab checked last year was normal Continue Levothyroxine 88 mcg QD Will consider referring to endocrinology for further evaluation if her TSH level increases again and free T4 remains normal or low normal - possible Grave's disease Will recheck TFTs in 4 months for follow up (5) Diabetes mellitus: Code(s): E11.9 - Type 2 diabetes mellitus without complications Qualifiers: Diabetes mellitus complication status: without complication Diabetes mellitus [facility] insulin use: without [facility] use Diabetes mellitus type: type 2 Qualified Code(s): E11.9 - Type 2 diabetes mellitus without complications Plan: HgbA1c was at 6.8% on her labs done a few days ago (was at 7.3% a few months ago) - goal is at least < 7.5% Reinforced diabetic diet Continue Metformin ER 500 mg QD (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 Bernal Code(s): I89.0 - Lymphedema, not elsewhere classified Plan: Continue HCTZ 12.5 mg Q AM Reminded again that management of lymphedema is difficult and often involves a multimodal approach, including diuretics, compression stockings and leg elevation and even with these, it is often not possible to eliminate the symptoms completely and sometimes, the best that can be done is minimizing symptoms as best as possible Follow up with vascular surgery as scheduled (8) COPD (chronic obstructive pulmonary disease): Code(s): J44.9 - Chronic obstructive pulmonary disease, unspecified Qualifiers: COPD type: unspecified COPD Qualified Code(s): J44.9 - Chronic obstructive pulmonary disease, unspecified Plan: Stable/asymptomatic and has not required any Rx or inhalers so far (9) Vitamin D deficiency: Code(s): E55.9 - Vitamin D deficiency, unspecified Plan: Continue Vitamin D3 1000 units QD (10) Overactive bladder: Code(s): N32.81 - Overactive bladder Plan: Continue Oxybutynin ER 15 mg QD - will change Rx instructions to have this dosed at bedtime again Advised that the Rx was written as 1 tablet daily at bedtime in the past but at some point, this instruction somehow got lost in translation Consider referral to urology if symptoms worsen (11) Urine culture positive: Code(s): R82.79 - Other abnormal findings on microbiological examination of urine Plan: Urine culture done a few days ago again came out positive for E. coli (pansensitive) Patient currently states that she has no increased urinary symptoms; still has some nocturia and incontinence but denies any dysuria or increased urinary frequency Suspect that her positive urine culture is due to colonization as she does have incomplete emptying of her bladder; will treat with Abx only if she is symptomatic (12) Alternating constipation and diarrhea: Code(s): R19.8 - Other specified symptoms and signs involving the digestive system and abdomen Plan: Was referred to GI previously for further evaluation and management but patient decided she did not want to go and had her appt cancelled States that her symptoms have been a lot better lately since she started taking some OTC fiber supplements regularly Is again encouraged to increase her oral fluid intake and dietary fiber Advised that she can call GI to schedule an appt if her symptoms get worse again or if she changes her mind about her referral (13) Anxiety: Code(s): F41.9 - Anxiety disorder, unspecified Plan: Continue Citalopram 40 mg QD and Lorazepam 0.5 mg QD PRN Plan Follow up in 4 months Orders: Orders Complete Blood Count Auto Diff 4 Months I10 - Essential (primary) hypertension Comprehensive [place]. Panel Fast 4 Months E78.00 - Pure hypercholesterolemia, unspecified Lipid Panel 4 Months E78.00 - Pure hypercholesterolemia, unspecified Thyroid Stimulating Hormone 4 Months E03.9 - Hypothyroidism, unspecified Free T4 (Free Thyroxine) 4 Months E03.9 - Hypothyroidism, unspecified Vitamin D 25-OH Total 4 Months E55.9 - Vitamin D deficiency, unspecified Hemoglobin A1c 4 Months E11.9 - Type 2 diabetes mellitus without complications Microalbumin, Random (w Creat) 4 Months E11.9 - Type 2 diabetes mellitus without complications Medications: Changed From oxybutynin chloride ER 15 mg PO DAILY 28 tabs 3RF To oxybutynin chloride ER 15 mg PO BEDTIME 28 days 28 tabs 5RF Coding Level of Care Code Est Pt Level 4 (71855) Diagnoses Pure hypercholesterolemia E78.00 PAF (paroxysmal atrial fibrillation) I48.0 Coronary artery disease I25.10 Associated angina: without angina Coronary Disease-Associated Artery/Lesion type: [place] artery [place] vs. transplanted heart: [place] heart Hypothyroidism E03.9 Hypothyroidism type: acquired Diabetes mellitus E11.9 Diabetes mellitus complication status: without complication Diabetes mellitus [place] insulin use: without roasterman use Diabetes mellitus type: type 2 Situs inversus Q89.3 Lymphedema I89.0 COPD (chronic obstructive pulmonary disease) J44.9 COPD type: unspecified COPD Vitamin D deficiency E55.9 Overactive bladder N32.81 Urine culture positive R82.79 Alternating constipation and diarrhea R19.8 Anxiety F41.9
== END 2023-07-05 14:56 | disposition home or self-care (01) ==
PROVIDERS: Visit Provider Internal Medicine
DX: E11.9 Type 2 diabetes mellitus without complications (principal); E03.9 Hypothyroidism, unspecified; J44.9 Chronic obstructive pulmonary disease, unspecified; E55.9 Vitamin D deficiency, unspecified
CPT/HCPCS: 99214

== ENCOUNTER 2023-11-07 09:32 | Outpatient (REF) | payer OTHER, SELFPAY ==
[2023-11-07 10:05] LABS: MANUAL DIFF FLAG NO
[2023-11-07 10:31] LABS: Basophils Absolute Auto 0.1 X10*3/uL (0.0-0.2); Basophils Percent Auto 1.1 % (0-2); Eosinophils Absolute Auto 0.2 X10*3/uL (0.0-0.4); Eosinophils Percent Auto 3.8 % (0-4); Hematocrit 38.5 % (37.0-47.0); Hemoglobin 12.4 g/dl (12.0-16.0); Imm Gran Abs Auto 0.02 X10*3/uL (0.00-0.03); Imm Gran Pct Auto 0.4 % (0.0-0.4); Lymphocytes Percent Auto 18.4 % (20-40); Mean Corpuscular HGB Conc 32.2 g/dl (31.0-35.0); Mean Corpuscular Hemoglobin 29.2 pg (27.0-33.0); Mean Corpuscular Volume 90.8 fL (80.0-98.0); Mean Platelet Volume 9.8 fL (9.4-12.3); Monocytes Absolute Auto 0.6 X10*3/uL (0.1-1.2); Monocytes Percent Auto 10.5 % (2-11); Neutrophils Absolute Auto 3.6 x10*3/uL (2.0-8.3); Neutrophils Percent Auto 65.8 % (45-73); Platelet Count 250 X10*3/uL (160-400); Red Blood Count 4.24 X10*6/uL (4.20-5.50); Red Cell Distribution Width 14.8 % (11.0-16.0); White Blood Count 5.5 X10*3/uL (4.8-10.8)
[2023-11-07 10:38] LABS: Estimated Average Glucose 174 mg/dL; Hemoglobin A1c % 7.7 % (<6.0)
[2023-11-07 11:01] LABS: Alanine Aminotransferase 8 U/L (0-31); Albumin Level 4.2 g/dL (3.5-5.0); Alkaline Phosphatase 74 U/L (39-117); Anion Gap 11 (12-20); Aspartate Amino Transferase 14 U/L (5-31); Bilirubin Total 0.8 mg/dL (0.0-1.0); Blood Urea Nitrogen 20 mg/dL (9-16); Calcium 9.4 mg/dL (8.4-10.2); Carbon Dioxide 30 mmol/L (22-29); Chloride 101 mmol/L (96-108); Cholesterol 145 mg/dL (<200); Estimated Glomerular Filt Rate > 60; Glucose Fasting 146 mg/dL (60-99); HDL Cholesterol 48 mg/dL (>40); LDL Cholesterol Calculated 78 mg/dL (<100); Potassium 3.8 mmol/L (3.3-5.1); Sodium 138 mmol/L (135-145); Total Protein 7.2 g/dL (6.5-8.0); Triglycerides 97 mg/dL (<150)
[2023-11-07 11:26] LABS: Free T4 (Free Thyroxine) 1.18 ng/dL (0.71-1.85); Thyroid Stimulating Hormone 1.59 uIU/mL (0.32-4.0); Vitamin D 25-OH Total 45.1 ng/mL (>30)
== END 2023-11-07 09:33 | disposition home or self-care (01) ==
LOC: HO.LAB 09:32
PROVIDERS: PCP Internal Medicine; Visit Provider Internal Medicine
DX: E03.9 Hypothyroidism, unspecified (principal); E11.9 Type 2 diabetes mellitus without complications; I10 Essential (primary) hypertension; E55.9 Vitamin D deficiency, unspecified; E78.00 Pure hypercholesterolemia, unspecified; R30.0 Dysuria
CPT/HCPCS: 36415; 80053; 80061; 82306; 83036; 84439; 84443; 85025

== ENCOUNTER 2023-11-13 14:06 | Outpatient (AMB) | payer OTHER, SELFPAY ==
[2023-11-13 14:08] VITALS: BP 150/98; PULSE 79; O2SAT 96; BMI 21.5
--- NOTE | 2023-11-13 14:08 | A.OFFPC_ITS ---
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 Accompanied by: Self / Same As Patient Allergies Sulfa (Sulfonamide Antibiotics) [SULFA(SULFONAMIDE ANTIBIOTICS)] Allergy (Severe, Verified 11/13/23 14:38) RASH latex [Latex] Allergy (Mild, Verified 11/13/23 14:38) RASH Medication List - Last Reconciled 11/13/23 by David Gerard MD atorvastatin 20 mg PO DAILY betamethasone, augmented 0.05 % topical cholecalciferol (vitamin D3) 25 mcg PO DAILY citalopram 40 mg PO DAILY 90 days Eliquis (apixaban) 2.5 mg (1/2 x 5 mg) PO BID 90 days NS hydrochlorothiazide 12.5 mg PO QAM levothyroxine 88 mcg PO QAM 90 days lorazepam 0.5 mg PO DAILY PRN 30 days metformin ER 500 mg PO QPM metoprolol succinate ER 25 mg PO DAILY nitroglycerin 0.4 mg sublingual Q5M PRN omeprazole 20 mg PO BID oxybutynin chloride ER 15 mg PO BEDTIME 28 days Tobacco use date assessed: 11/13/23 Fall risk assessment: 2 + Falls in past year (3x in the past 2 weeks.) Last assessed Fall Risk: 11/13/23 Dental Screening Dental Screen Date: 11/13/23 Did you have a dental visit in the last 12 months?: Yes Did you have a dental problem in the last 6 months where you did not have access to dental care?: No Was dental information given to patient?: Patient has dentist HPI hyperlipidemia, AF, hypothyroidism, situs inversus HPI Details Patient comes in today for her follow up visit States that she feels okay She denies any headaches or dizziness Denies any chest pains, no SOB No nausea/vomiting, no abdominal pain No change in bowel habits noted Had her follow up labs done last week - to discuss her results [facility] Medical History Anxiety Overactive bladder Vitamin D deficiency Hypothyroidism COPD (chronic obstructive pulmonary disease) Pure hypercholesterolemia Diabetes mellitus Situs inversus Coronary artery disease Chronic venous insufficiency Lymphedema Chronic ulcer of right ankle Ulcer of right ankle Surgical History Status post laser ablation of incompetent vein (~2014) H/O left wrist surgery History of hernia repair History of cholecystectomy Family History Father No problems noted. Mother Hypertension Family history of thyroid problem Social History Housing: Assisted Living Facility Alcohol intake: never Patient Tobacco Use Status: Never used Tobacco e-Cigarette/Vaping Use: Never Used Second Hand Smoke Exposure: Yes service: No Current occupational status: retired Cognitive needs: Yes Hearing needs: Yes Vision needs: Yes Questionnaire PHQ-9 Over the last 2 weeks, how often have you been bothered by any of the following problems? 1. Little interest or pleasure in doing things: not at all 2. Feeling down, depressed, or hopeless: not at all 3. Trouble falling or staying asleep, or sleeping too much: not at all 4. Feeling tired or having little energy: not at all 5. Poor appetite or overeating: not at all 6. Feeling bad about yourself - or that you are a failure or have let yourself or your family down: not at all 7. Trouble concentrating on things, such as reading the newspaper or watching television: not at all 8. Moving or speaking so slowly that other people could have noticed. Or the opposite - being so fidgety or restless that you have been moving around a lot more than usual: not at all 9. Thoughts that you would be better off or of hurting yourself in some way: not at all Total score: 0 Depression Screening Interpretation: Negative Depression Screening Done: Yes 30496 - PHQ-9 Billing: Yes Source: Developed by Drs. Gabriel Duke, Stephanie Ayala, Mihai Gilliland and colleagues, with an educational christina from [employer]. Thrive Questionnaire Date Thrive assessed: 11/13/23 I am a: Patient What is your living situation today?: I have a steady place to live Within the past 12 months, did the food you bought not last and you didn't have the money to get more?: Never true Within the past 12 months, did you worry whether your food would run out before you got money to buy more?: Never true Do you have trouble paying for medicines?: No Do you have trouble getting transportation to medical appointments?: No Do you have trouble paying your heating and electricity bill?: No Do you have trouble taking care of your child, family member or friend?: No Do you have trouble with day-to-day activities such as bathing, preparing meals, shopping, managing finances, etc.?: No Are you currently unemployed and looking for a job?: No Are you interested in more education?: No Please select the resources that you would like help with: None Currently or been in a relationship where the following occur: no concerns reported AUDIT C Alcohol Use Questionnaire (AUDIT-C) 1. How often do you have a drink containing alcohol?: Never 3. How often do you have six or more drinks on one occasion?: Never Total Score: 0 Score Reviewed/Action Taken: Yes JOYCELYN-7 AMB Questionnaire JOYCELYN-7 Date JOYCELYN - 7 assessed: 11/13/23 Feeling nervous, anxious, or on edge: 0 = Not at all Not being able to stop or control worryin = Not at all Worrying too much about different things: 0 = Not at all Trouble relaxin = Not at all Being so restless that it is hard to sit still: 0 = Not at all Becoming easily annoyed or irritable: 0 = Not at all Feeling afraid as if something awful might happen: 0 = Not at all Total JOYCELYN-7 score (0-4 normal; 5-9 mild; 10-14 moderate; 15-21 severe): 0 Source: Developed by Drs. Gabriel Duke, Stephanie Ayala, Mihai Gilliland and colleagues, with an educational christina from [employer]. Review of Systems Const Reports difficulty sleeping (at times - Lorazepam helps), Denies fatigue, Denies fever(s) and Denies headache(s) ENT Denies dysphagia, Denies dizziness, Denies otalgia, Denies headache(s), Denies neck pain, Denies odynophagia and Denies sore throat Card Denies chest pain, Denies palpitations and Denies dyspnea Resp Denies chest congestion, Denies cough, Denies dyspnea and Denies wheezing GI Denies abdominal pain, Reports constipation (on and off - better controlled lately with fiber supplements), Denies dysphagia, Denies heartburn, Reports diarrhea (on and off - better controlled lately with fiber supplements), Denies nausea, Denies odynophagia and Denies vomiting Denies difficulty voiding, Reports nocturia (increasing lately), Denies dysuria and Reports urinary incontinence (occasionally) Musc Denies back pain and Denies neck pain Skin/Breast Denies rash Neuro Denies dizziness and Denies headache(s) Psych Denies anxiety and Denies depression Endo Denies fatigue and Denies palpitations Jose/Lymph Details: on and off swelling of both lower extremities - worse on the left leg Denies easy bruising Aller/Immun Denies wheezing Physical exam (Primary Care) Vital Signs: Last Vital Signs Pulse 79 11/13/23 14:08 BP 150/98 H 11/13/23 14:08 Pulse Ox 96 11/13/23 14:08 Oxygen Delivery Method Room Air 11/13/23 14:08 BMI result Body Mass Index 21.5 Tobacco/Smoking Status: Tobacco use Status Tobacco use date assessed 11/13/23 11/13/23 14:14 Patient Tobacco Use Status Never used Tobacco 11/13/23 14:14 e-Cigarette/Vaping Use Never Used 11/13/23 14:14 PHQ-9: PHQ-9 Score PHQ-9: Total score 0 11/13/23 14:14 Depression Screening Interpretation: Negative Thrive Assessment: Date of Thrive Assessment Date Thrive assessed 11/13/23 11/13/23 14:14 Currently or been in a relationship where the following occur: no concerns reported Const General: no acute distress and alert HENMT Ears: TM's normal bilaterally and EAC's normal Throat: Yes posterior oropharynx normal and Yes tonsils normal (no TP congestion noted) Neck Neck: Yes no lymphadenopathy and Yes supple Thyroid: Thyroid normal Resp Auscultation: clear to auscultation bilaterally, no rales and no wheezes Cardio Other: * 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 INVERSUS Rate: regular rate Rhythm: abnormal rhythm irregularly irregular Heart sounds: no murmurs GI Palpation (GI): Soft to palpation and nontender Auscultation: normal bowel sounds General: Yes no CVA tenderness Back/Spine/Pelvis Back: no CVA tenderness Thoracic/Lumbar Spine: thoracic and lumbar spine normal to inspection Skin Rashes: no rashes Neuro Gait exam (Neuro): Assistive device used (walker) Extrem General: No clubbing, No cyanosis and Yes edema (2+ edema on the right lower extremity; trace edema on the left side) Results Reviewed Results Reviewed: Laboratory Tests 11/20/22 11/07/23 11/07/23 09:59 10:03 10:03 WBC 5.5 Hgb 12.4 Hct 38.5 Plt Count 250 Sodium 138 Potassium 3.8 Creatinine 0.75 Estimated GFR > 60 Fasting Glucose 146 H Hemoglobin A1c % 7.7 H Calcium 9.4 AST 14 ALT 8 Triglycerides 97 Cholesterol 145 LDL Cholesterol, Calc 78 HDL Cholesterol 48 25-OH Vitamin D Total 45.1 Free T3 3.1 TSH 1.59 Free T4 1.18 Assessment and Plan Assessment & Plan (1) Pure hypercholesterolemia: Code(s): E78.00 - Pure hypercholesterolemia, unspecified Plan: Results of her labs done last week reviewed and discussed with patient Reinforced low cholesterol diet Continue Atorvastatin 20 mg QD Will recheck her labs and fasting lipids in 4 months for follow-up (2) Diabetes mellitus: Code(s): E11.9 - Type 2 diabetes mellitus without complications Qualifiers: Diabetes mellitus type: type 2 Diabetes mellitus meterman insulin use: without residential use Diabetes mellitus complication status: without complication Qualified Code(s): E11.9 - Type 2 diabetes mellitus without complications Plan: Her HgbA1c has increased to 7.7% on her labs done last week (was at 6.8% a few months ago) - goal is at least < 7.5% Reinforced diabetic diet Patient admits that she has been cheating on her sweets lately and she is advised to stop or risk having to take more medications later on for her diabetes Continue Metformin ER 500 mg QD for now Will recheck her FBS and HgbA1c in 4 months for follow up (3) PAF (paroxysmal atrial fibrillation): Code(s): I48.0 - Paroxysmal atrial fibrillation Plan: Patient is currently still in AF but remains rate-controlled Continue Metoprolol ER 25 mg QD Continue Eliquis 2.5 mg BID for thromboembolism prophylaxis Follow up with cardiology as scheduled (4) Coronary artery disease: Comment: S/P NSTEMI in 2016 and in 04/2023 Code(s): I25.10 - Atherosclerotic heart disease of [place] coronary artery without angina pectoris Qualifiers: Coronary Disease-Associated Artery/Lesion type: [place] artery [place] vs. transplanted heart: [place] heart Associated angina: without angina Qualified Code(s): I25.10 - Atherosclerotic heart disease of [place] coronary artery without angina pectoris Plan: Is currently asymptomatic Continue Metoprolol ER 25 mg QD; Aspirin 81 mg was discontinued by cardiology previously Apparently had another NSTEMI episode in April 2023; pharmacologic stress testing done a couple of months ago came out normal Follow up with cardiology as scheduled - was last seen just under a month ago (5) Hypothyroidism: Code(s): E03.9 - Hypothyroidism, unspecified Qualifiers: Hypothyroidism type: acquired Qualified Code(s): E03.9 - Hypothyroi dism, unspecified Plan: Her TSH and free T4 were both normal on her recent labs done last week TPO Ab checked last year was normal Continue Levothyroxine 88 mcg QD Will consider referring to endocrinology for further evaluation if her TSH level increases again and free T4 remains normal or low normal - possible Grave's disease Will recheck her TFTs in 4 months for follow up (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 Bernal Code(s): I89.0 - Lymphedema, not elsewhere classified Plan: Continue HCTZ 12.5 mg Q AM Reminded again that management of lymphedema is difficult and often involves a multimodal approach, including diuretics, compression stockings and leg elevation and even with these, it is often not possible to eliminate the symptoms completely and sometimes, the best that can be done is minimizing symptoms as best as possible Follow up with vascular surgery as scheduled (8) COPD (chronic obstructive pulmonary disease): Code(s): J44.9 - Chronic obstructive pulmonary disease, unspecified Qualifiers: COPD type: unspecified COPD Qualified Code(s): J44.9 - Chronic obstructive pulmonary disease, unspecified Plan: Stable/asymptomatic and has not required any Rx or inhalers so far (9) Vitamin D deficiency: Code(s): E55.9 - Vitamin D deficiency, unspecified Plan: Corrected - continue Vitamin D3 1000 units QD (10) Overactive bladder: Code(s): N32.81 - Overactive bladder Plan: Continue Oxybutynin ER 15 mg Q HS Have advised that her recent increased nocturia may actually be related to the increase in her blood sugar and worsening glycemic control lately and should improve again once her diabetes gets back under control Will consider referral to urology if her urinary symptoms worsen (11) Alternating constipation and diarrhea: Code(s): R19.8 - Other specified symptoms and signs involving the digestive system and abdomen Plan: Was referred to GI previously for further evaluation and management but patient decided she did not want to go and had her appt cancelled States that her symptoms have been a lot better lately since she started taking some OTC fiber supplements regularly Is again encouraged to increase her oral fluid intake and dietary fiber Advised that she can call GI to schedule an appt if her symptoms get worse again or if she changes her mind about her referral (12) Anxiety: Code(s): F41.9 - Anxiety disorder, unspecified Plan: Continue Citalopram 40 mg QD and Lorazepam 0.5 mg QD PRN Plan Follow up in 4 months Orders: Orders Lipid Panel 4 Months E78.00 - Pure hypercholesterolemia, unspecified UA CC w/rflx Micro + Cult 4 Months R30.0 - Dysuria Vitamin D 25-OH Total 4 Months E55.9 - Vitamin D deficiency, unspecified Hemoglobin A1c 4 Months E11.9 - Type 2 diabetes mellitus without complications Thyroid Stimulating Hormone 4 Months E03.9 - Hypothyroidism, unspecified Free T4 (Free Thyroxine) 4 Months E03.9 - Hypothyroidism, unspecified Comprehensive [place]. Panel Fast 4 Months E78.00 - Pure hypercholesterolemia, unspecified Complete Blood Count Auto Diff 4 Months I10 - Essential (primary) hypertension Microalbumin, Random (w Creat) 4 Months E11.9 - Type 2 diabetes mellitus without complications Vitamin B12 and Folate 4 Months E53.8 - Deficiency of other specified B group vitamins Coding Level of Care Code Est Pt Level 4 (10444) Diagnoses Pure hypercholesterolemia E78.00 Type 2 diabetes mellitus without complication, without long-term current use of insulin E11.9 Diabetes mellitus type: type 2 Diabetes mellitus residential insulin use: without residential use Diabetes mellitus complication status: without complication PAF (paroxysmal atrial fibrillation) I48.0 Coronary artery disease involving [place] coronary artery of [place] heart without angina pectoris I25.10 Coronary Disease-Associated Artery/Lesion type: [place] artery [place] vs. transplanted heart: [place] heart Associated angina: without angina Acquired hypothyroidism E03.9 Hypothyroidism type: acquired Situs inversus Q89.3 Lymphedema I89.0 Chronic obstructive pulmonary disease, unspecified COPD type J44.9 COPD type: unspecified COPD Vitamin D deficiency E55.9 Overactive bladder N32.81 Alternating constipation and diarrhea R19.8 Anxiety F41.9
[2023-11-13 14:45] VITALS: BP 140/88
== END 2023-11-13 14:53 | disposition home or self-care (01) ==
PROVIDERS: PCP Internal Medicine; Visit Provider Internal Medicine
DX: E11.9 Type 2 diabetes mellitus without complications (principal); I48.0 Paroxysmal atrial fibrillation; J44.9 Chronic obstructive pulmonary disease, unspecified; E78.00 Pure hypercholesterolemia, unspecified; I25.10 Atherosclerotic heart disease of native coronary artery without angina pectoris; E03.9 Hypothyroidism, unspecified; Q89.3 Situs inversus; I89.0 Lymphedema, not elsewhere classified; E55.9 Vitamin D deficiency, unspecified; N32.81 Overactive bladder; R19.8 Other specified symptoms and signs involving the digestive system and abdomen; F41.9 Anxiety disorder, unspecified
CPT/HCPCS: 99214

== ENCOUNTER 2023-12-03 10:29 | Outpatient (AMB) | payer OTHER, SELFPAY ==
--- NOTE | 2023-12-03 10:31 | A.OFFVIS_ITS ---
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 Accompanied by: Sister Allergies Sulfa (Sulfonamide Antibiotics) [SULFA(SULFONAMIDE ANTIBIOTICS)] Allergy (Severe, Verified 12/03/23 10:35) RASH latex [Latex] Allergy (Mild, Verified 12/03/23 10:35) RASH Medication List - Last Reconciled 12/03/23 by Casimiro Buchanan MD apixaban (Eliquis) 2.5 mg PO BID atorvastatin 20 mg PO DAILY betamethasone, augmented 0.05 % topical cholecalciferol (vitamin D3) 25 mcg PO DAILY citalopram 40 mg PO DAILY 90 days hydrochlorothiazide 12.5 mg PO QAM levothyroxine 88 mcg PO QAM 90 days lorazepam 0.5 mg PO DAILY PRN 30 days metformin ER 500 mg PO QPM metoprolol succinate ER 25 mg PO DAILY nitroglycerin 0.4 mg sublingual Q5M PRN omeprazole 20 mg PO BID oxybutynin chloride ER 15 mg PO BEDTIME 28 days HPI HPI Comments History of Present Illness Details Jelly returns for follow-up. She has a background of situs inversus/dextrocardia. Few years ago, she had an NSTEMI in the setting of gastroenteritis. Then we had seen her for a while but more recently had atrial fibrillation for which she was put on Eliquis. Was also on some beta-blockers. Then another episode of chest pain leading to evaluation at [facility] and then transferred to [facility]. Underwent pharmacological stress test, which was unremarkable and she was discharged. After that, for the most part she is doing okay. No clear cardiac symptoms. Blood pressure seems to be on the higher side. [facility] Medical History Anxiety Overactive bladder Vitamin D deficiency Hypothyroidism COPD (chronic obstructive pulmonary disease) Pure hypercholesterolemia Diabetes mellitus Situs inversus Coronary artery disease Chronic venous insufficiency Lymphedema Chronic ulcer of right ankle Ulcer of right ankle Surgical History Status post laser ablation of incompetent vein (~2014) H/O left wrist surgery History of hernia repair History of cholecystectomy Family History Father No problems noted. Mother Hypertension Family history of thyroid problem Social History Housing: Assisted Living Facility Alcohol intake: never Patient Tobacco Use Status: Never used Tobacco e-Cigarette/Vaping Use: Never Used Second Hand Smoke Exposure: Yes service: No Current occupational status: retired Cognitive needs: Yes Hearing needs: Yes Vision needs: Yes Review of Systems Const Denies weakness ENT Denies dizziness Card Denies chest pain, Denies chest pain with activity, Denies syncope, Denies rapid heart rate, Denies pedal edema, Denies edema, Denies leg edema, Denies lightheadedness, Denies palpitations, Denies dyspnea, Denies dyspnea on exertion and Denies orthopnea Resp Denies cough, Denies dyspnea and Denies dyspnea on exertion GI Denies hematochezia and Denies change in stool character Musc Denies abnormal gait, Denies muscle cramps, Denies muscle weakness, Denies numbness, Denies radiating pain into limb and Denies tingling Neuro Denies abnormal gait, Denies dizziness, Denies syncope, Denies numbness, Denies tingling and Denies weakness Endo Denies palpitations Physical Exam Vital Signs: Last Vital Signs Pulse 87 12/03/23 10:34 BP 154/70 H 12/03/23 10:34 BMI result Body Mass Index 23.0 Const General: comfortable and no acute distress Orientation/consciousness: patient oriented x3 HEENT Other: Unremarkable Head: Yes normal to inspection Neck Neck: Yes normal visual inspection Chest Chest palpation & inspection: normal inspection of the chest Resp Auscultation: clear to auscultation bilaterally Cardio Palpation: normal PMI Heart sounds: S1 normal heart sound present, S2 normal heart sound present, no gallops, no murmurs and no rubs GI Palpation (GI): Soft to palpation Back/Spine/Pelvis Other: unremarkable Skin General skin exam: no rashes or lesions noted Neuro General: patient oriented x3 Extrem General: Yes normal to inspection Psych Mental Status: mental status grossly normal Assessment & Plan Assessment & Plan (1) Atherosclerotic cardiovascular disease: Code(s): I25.10 - Atherosclerotic heart disease of [place] coronary artery without angina pectoris Plan: In the perfusion imaging from [facility] from April 2023, no evidence of fixed or reversible perfusion defects after regadenoson. Her EKG does look abnormal and she also had elevated troponins. Hence she still has probability of underlying CAD. Patient does not want any invasive workup at all. Discussed last time as well as today. Hence continue medications for stable CAD. Continue beta-blockers and statins. (2) PAF (paroxysmal atrial fibrillation): Code(s): I48.0 - Paroxysmal atrial fibrillation Plan: Continue beta-blockers and Eliquis. (3) Essential hypertension: Code(s): I10 - Essential (primary) hypertension Plan: Seems to be high. We can add amlodipine 5 mg daily. 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 No specific management. Plan Discussed plan with sister who came for appointment. Medications: New amlodipine 5 mg PO DAILY 90 tabs 3RF Coding Level of Care Code Est Pt Level 4 (15881) Diagnoses Atherosclerotic cardiovascular disease I25.10 PAF (paroxysmal atrial fibrillation) I48.0 Essential hypertension I10 Situs inversus with dextrocardia Q89.3
[2023-12-03 10:34] VITALS: BP 154/70; PULSE 87; BMI 23.0
== END 2023-12-03 10:51 | disposition home or self-care (01) ==
PROVIDERS: PCP Internal Medicine; Visit Provider Internal Medicine
DX: I25.10 Atherosclerotic heart disease of native coronary artery without angina pectoris (principal); I48.0 Paroxysmal atrial fibrillation; I10 Essential (primary) hypertension; Q89.3 Situs inversus
CPT/HCPCS: 99214

== ENCOUNTER → 2023-12-03 10:29 | Outpatient (BNVA) | payer OTHER, SELFPAY | PROVIDERS: PCP Internal Medicine; Visit Provider Internal Medicine | DX: I25.10 Atherosclerotic heart disease of native coronary artery without angina pectoris (principal); I48.0 Paroxysmal atrial fibrillation; I10 Essential (primary) hypertension; Z79.01 Long term (current) use of anticoagulants; Z79.899 Other long term (current) drug therapy; Q89.3 Situs inversus; I25.2 Old myocardial infarction | CPT/HCPCS: 99212 ==

== ENCOUNTER 2024-03-03 09:42 | Outpatient (REF) | payer OTHER, SELFPAY ==
[2024-03-03 10:10] LABS: MANUAL DIFF FLAG NO
[2024-03-03 10:50] LABS: Basophils Absolute Auto 0.1 X10*3/uL (0.0-0.2); Basophils Percent Auto 0.7 % (0-2); Eosinophils Absolute Auto 0.2 X10*3/uL (0.0-0.4); Eosinophils Percent Auto 2.2 % (0-4); Hematocrit 42.7 % (37.0-47.0); Hemoglobin 13.7 g/dl (12.0-16.0); Imm Gran Abs Auto 0.04 X10*3/uL (0.00-0.03); Imm Gran Pct Auto 0.5 % (0.0-0.4); Lymphocytes Absolute Auto 1.1 X10*3/uL (1.2-4.9); Lymphocytes Percent Auto 14.6 % (20-40); Mean Corpuscular HGB Conc 32.1 g/dl (31.0-35.0); Mean Corpuscular Hemoglobin 29.7 pg (27.0-33.0); Mean Corpuscular Volume 92.4 fL (80.0-98.0); Mean Platelet Volume 10.1 fL (9.4-12.3); Monocytes Absolute Auto 0.7 X10*3/uL (0.1-1.2); Monocytes Percent Auto 9.1 % (2-11); Neutrophils Absolute Auto 5.6 x10*3/uL (2.0-8.3); Neutrophils Percent Auto 72.9 % (45-73); Platelet Count 291 X10*3/uL (160-400); Red Blood Count 4.62 X10*6/uL (4.20-5.50); Red Cell Distribution Width 14.8 % (11.0-16.0); White Blood Count 7.7 X10*3/uL (4.8-10.8)
[2024-03-03 11:14] LABS: Appearance Urine Turbid; Color Urine Dark Yellow; Glucose Urine UA Negative (Negative); Leukocyte Esterase Urine Large (3+) (Negative); Nitrite Urine Positive (Negative); UMIC TRIGGER UACC YES; Urine Blood Moderate (2+) (Negative); Urine Ketones Trace mg/dL (Negative); Urine Protein 100 (2+) mg/dL (Neg-Trace)
[2024-03-03 11:20] LABS: Bacteria Urine 4+ (None Seen); Hyaline Casts Urine 0-2 /LPF (0-2); UACC Culture Trigger YES; WBC Urine >50 /HPF (0-5)
[2024-03-03 11:24] LABS: Estimated Average Glucose 174 mg/dL; Hemoglobin A1c % 7.7 % (<6.0)
[2024-03-03 11:31] LABS: Creatinine Urine 209.67 mg/dL
[2024-03-03 11:34] LABS: Alanine Aminotransferase 11 U/L (0-31); Albumin Level 4.4 g/dL (3.5-5.0); Alkaline Phosphatase 73 U/L (39-117); Anion Gap 14 (12-20); Aspartate Amino Transferase 16 U/L (5-31); Bilirubin Total 0.8 mg/dL (0.0-1.0); Blood Urea Nitrogen 19 mg/dL (9-16); Calcium 10.1 mg/dL (8.4-10.2); Carbon Dioxide 30 mmol/L (22-29); Chloride 100 mmol/L (96-108); Cholesterol 141 mg/dL (<200); Estimated Glomerular Filt Rate > 60; Glucose Fasting 189 mg/dL (60-99); HDL Cholesterol 50 mg/dL (>40); LDL Cholesterol Calculated 69 mg/dL (<100); Potassium 3.8 mmol/L (3.3-5.1); Sodium 140 mmol/L (135-145); Total Protein 7.6 g/dL (6.5-8.0); Triglycerides 112 mg/dL (<150)
[2024-03-03 11:53] LABS: Free T4 (Free Thyroxine) 1.42 ng/dL (0.71-1.85); Thyroid Stimulating Hormone 3.61 uIU/mL (0.32-4.0); Vitamin D 25-OH Total 46.8 ng/mL (>30)
[2024-03-03 12:13] LABS: Folate 14.8 ng/mL (> or = 4.0); Vitamin B12 453 pg/mL (200-900)
== END 2024-03-03 09:43 | disposition home or self-care (01) ==
LOC: HO.LAB 09:42
PROVIDERS: PCP Internal Medicine; Visit Provider Internal Medicine
DX: I10 Essential (primary) hypertension (principal); E11.9 Type 2 diabetes mellitus without complications; E03.9 Hypothyroidism, unspecified; E78.00 Pure hypercholesterolemia, unspecified; E53.8 Deficiency of other specified B group vitamins; E55.9 Vitamin D deficiency, unspecified; R30.0 Dysuria
CPT/HCPCS: 36415; 80053; 80061; 81001; 81003; 82043; 82306; 82570; 82607; 82746; 83036; 84439; 84443; 85025; 87086; 87186

== ENCOUNTER 2024-03-06 13:41 | Outpatient (AMB) | payer OTHER, SELFPAY ==
--- NOTE | 2024-03-06 14:03 | A.OFFPC_ITS ---
Vital Signs 03/06/24 14:04 Height 5 ft 4 in Weight 119 lb 8 oz BMI 20.5 BP 126/64 Blood Pressure Location Lt brachial Position Sitting Pulse 85 Pulse Source Pulse Oximeter Pulse Oximetry (%) 95 Oxygen Delivery Method Room Air Intake Visit Reasons: Annual Exam Intake Note: Patient is here today for a physical. Certified Family Mediator Required: No Accompanied by: Daughter Allergies Sulfa (Sulfonamide Antibiotics) [SULFA(SULFONAMIDE ANTIBIOTICS)] Allergy (Severe, Verified 03/06/24 14:13) RASH latex [Latex] Allergy (Mild, Verified 03/06/24 14:13) RASH Medication List - Last Reconciled 03/06/24 by David Gerard MD amlodipine 5 mg PO DAILY apixaban (Eliquis) 2.5 mg PO BID atorvastatin 20 mg PO DAILY betamethasone, augmented 0.05 % topical cholecalciferol (vitamin D3) 25 mcg PO DAILY citalopram 40 mg PO DAILY 90 days hydrochlorothiazide 12.5 mg PO QAM levothyroxine 88 mcg PO QAM 90 days lorazepam 0.5 mg PO DAILY PRN 30 days metformin ER 500 mg PO QPM metoprolol succinate ER 25 mg PO DAILY nitroglycerin 0.4 mg sublingual Q5M PRN omeprazole 20 mg PO BID oxybutynin chloride ER 15 mg PO BEDTIME 28 days Tobacco use date assessed: 03/06/24 Fall risk assessment: No Falls in past year Last assessed Fall Risk: 03/06/24 Dental Screening Dental Screen Date: 03/06/24 Did you have a dental visit in the last 12 months?: Yes Did you have a dental problem in the last 6 months where you did not have access to dental care?: No Was dental information given to patient?: Patient has dentist HPI Annual Exam HPI Details Patient comes in today for her annual physical examination States that she has been experiencing increased cough and congestion for over a week now Her sister states that patient sounds very congested when she is coughing and patient states that she does feel somewhat SOB when she has her fits of coughing lately She denies any fever or sore throat; denies any headaches or dizziness Denies any chest pains No nausea/vomiting, no abdominal pain although she does feel bloated at times lately Relates that she has been experiencing increased constipation for a couple of weeks now and that she has not been going to the bathroom as well as she used to - is wondering if she can take some laxatives that she was told about that was supposedly plant-based and safer for use She denies any acute urinary symptoms Had her follow up labs done a few days ago - to discuss her results She has never had a screening colonoscopy done in the past (by choice) as she has been afraid to use the bowel prep She was sent for some CT by gastroenterology a few years ago as a crude alternative and her CT came back negative She also vaguely recalls having some type of stool testing done (Fit testing?) that came out okay She also no longer need to go for routine breast or cervical cancer screening at her age PFSH Medical History Anxiety Overactive bladder Vitamin D deficiency Hypothyroidism COPD (chronic obstructive pulmonary disease) Pure hypercholesterolemia Diabetes mellitus Situs inversus Coronary artery disease Chronic venous insufficiency Lymphedema Chronic ulcer of right ankle Ulcer of right ankle Surgical History Status post laser ablation of incompetent vein (~2014) H/O left wrist surgery History of hernia repair History of cholecystectomy Family History Father No problems noted. Mother Hypertension Family history of thyroid problem Social History Housing: Assisted Living Facility Alcohol intake: never Patient Tobacco Use Status: Never used Tobacco e-Cigarette/Vaping Use: Never Used Second Hand Smoke Exposure: Yes service: No Current occupational status: retired Cognitive needs: Yes Hearing needs: Yes Vision needs: Yes Questionnaire PHQ-9 Over the last 2 weeks, how often have you been bothered by any of the following problems? 1. Little interest or pleasure in doing things: not at all 2. Feeling down, depressed, or hopeless: not at all 3. Trouble falling or staying asleep, or sleeping too much: not at all 4. Feeling tired or having little energy: not at all 5. Poor appetite or overeating: not at all 6. Feeling bad about yourself - or that you are a failure or have let yourself or your family down: not at all 7. Trouble concentrating on things, such as reading the newspaper or watching television: not at all 8. Moving or speaking so slowly that other people could have noticed. Or the opposite - being so fidgety or restless that you have been moving around a lot more than usual: not at all 9. Thoughts that you would be better off or of hurting yourself in some way: not at all Total score: 0 Depression Screening Interpretation: Negative Depression Screening Done: Yes [id number] - PHQ-9 Billing: Yes Source: Developed by Drs. Gabriel Duke, Stephanie Ayala, Mihai Gilliland and colleagues, with an educational christina from [email or web address]. Thrive Questionnaire Date Thrive assessed: 03/06/24 I am a: Patient What is your living situation today?: I have a steady place to live Within the past 12 months, did the food you bought not last and you didn't have the money to get more?: Never true Within the past 12 months, did you worry whether your food would run out before you got money to buy more?: Never true Do you have trouble paying for medicines?: No Do you have trouble getting transportation to medical appointments?: No Do you have trouble paying your heating and electricity bill?: No Do you have trouble taking care of your child, family member or friend?: No Do you have trouble with day-to-day activities such as bathing, preparing meals, shopping, managing finances, etc.?: No Are you currently unemployed and looking for a job?: No Are you interested in more education?: No Please select the resources that you would like help with: None Currently or been in a relationship where the following occur: no concerns reported THRIVE Score: 0 AUDIT C Alcohol Use Questionnaire (AUDIT-C) 1. How often do you have a drink containing alcohol?: Never 3. How often do you have six or more drinks on one occasion?: Never Total Score: 0 Score Reviewed/Action Taken: Yes JOYCELYN-7 AMB Questionnaire JOYCELYN-7 Date JOYCELYN - 7 assessed: 03/06/24 Feeling nervous, anxious, or on edge: 0 = Not at all Not being able to stop or control worryin = Not at all Worrying too much about different things: 0 = Not at all Trouble relaxin = Not at all Being so restless that it is hard to sit still: 0 = Not at all Becoming easily annoyed or irritable: 0 = Not at all Feeling afraid as if something awful might happen: 0 = Not at all Total JOYCELYN-7 score (0-4 normal; 5-9 mild; 10-14 moderate; 15-21 severe): 0 Source: Developed by Drs. Gabriel Duke, Stephanie Ayala, Mihai Gilliland and colleagues, with an educational christina from [email or web address]. JOYCELYN-7 Assessment Billing JOYCELYN-7 Assessment Tool: JOYCELYN-7 Assessment [id number] Review of Systems Const Denies chills, Denies fatigue, Denies fever(s), Denies headache(s) and Denies malaise Eyes Denies blurry vision, Denies change in vision, Denies irritation and Denies itchy eyes ENT Denies dysphagia, Denies dizziness, Denies otalgia, Denies headache(s), Denies nasal congestion, Denies neck pain, Denies odynophagia, Denies sinus pain and Denies sore throat Card Denies chest pain, Denies rapid heart rate, Denies irregular heart rhythm, Denies palpitations, Denies dyspnea and Reports dyspnea on exertion (mild, especially during her fits of coughing) Resp Reports chest congestion (increasing), Reports cough (recurrent - coughs up thick whitish to yellowish phlegm at times), Denies dyspnea, Reports dyspnea on exertion (mild, especially during her fits of coughing) and Denies wheezing GI Denies abdominal pain, Reports bloating (on and off), Reports constipation (increasing), Denies dysphagia, Denies heartburn, Denies diarrhea, Denies nausea, Denies odynophagia and Denies vomiting Denies hematuria, Denies urinary frequency, Reports nocturia, Denies dysuria, Reports urinary incontinence (occasional) and Denies urinary urgency Musc Denies back pain, Denies arthralgias, Denies joint swelling, Denies muscle weakness and Denies neck pain Skin/Breast Denies breast pain, Denies breast mass, Denies change in pigmentation, Denies lesions, Denies rash and Denies unusual bruising Neuro Denies dizziness, Denies headache(s) and Denies paresthesias Psych Denies anxiety and Denies depression Endo Denies fatigue and Denies palpitations Jose/Lymph Details: on and off swelling of both lower extremities - worse on the left leg Denies easy bruising Aller/Immun Denies itchy eyes and Denies wheezing Physical exam (Primary Care) Vital Signs: Last Vital Signs Pulse 85 03/06/24 14:04 BP 126/64 03/06/24 14:04 Pulse Ox 95 03/06/24 14:04 Oxygen Delivery Method Room Air 03/06/24 14:04 BMI result Body Mass Index 20.5 Tobacco/Smoking Status: Tobacco use Status Tobacco use date assessed 03/06/24 03/06/24 14:11 Patient Tobacco Use Status Never used Tobacco 03/06/24 14:03 e-Cigarette/Vaping Use Never Used 03/06/24 14:03 PHQ-9: PHQ-9 Score PHQ-9: Total score 0 03/06/24 14:11 Depression Screening Interpretation: Negative Thrive Assessment: Date of Thrive Assessment Date Thrive assessed 03/06/24 03/06/24 14:11 Currently or been in a relationship where the following occur: no concerns reported Const General: no acute distress, alert and awake Orientation/consciousness: patient oriented x3 HENMT Head: Yes normocephalic and Yes atraumatic Ears: external ears normal, TM's normal bilaterally and EAC's normal General nose exam: No nasal discharge present Face and sinus: Yes normal facial exam and Yes sinuses nontender Teeth and gingiva: dentition normal Throat: Yes posterior oropharynx normal and Yes tonsils normal (no TP congestion) Eyes Eyelids: Yes eyelids normal Conjunctivae: conjunctivae normal Pupils: Equal, round and reactive pupils present EOM: EOMs intact bilaterally Neck Neck: Yes no lymphadenopathy and Yes supple Thyroid: Thyroid normal Resp Auscultation: clear to auscultation bilaterally, no rales and no wheezes Cardio Other: * 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 INVERSUS Rate: regular rate Rhythm: regular rhythm Heart sounds: no murmurs GI Palpation (GI): Soft to palpation, nontender and No hepatosplenomegaly present Auscultation: normal bowel sounds General: Yes no CVA tenderness Back/Spine/Pelvis Back: no CVA tenderness Thoracic/Lumbar Spine: thoracic and lumbar spine normal to inspection Skin Lesions: no lesions Rashes: no rashes Neuro General: patient oriented x3, moves all extremities, no focal motor deficits and CN's II-XI intact bilaterally Cranial nerves: Yes Equal, round and reactive pupils present Cognition (Neuro): normal cognition Gait exam (Neuro): Normal gait present and Assistive device used (walker) Extrem General: No clubbing, No cyanosis and Yes edema (2+ edema on the right lower extremity; trace edema on the left side) Results Reviewed Results Reviewed: Laboratory Tests 03/03/24 03/03/24 10:01 10:07 WBC 7.7 Hgb 13.7 Hct 42.7 Plt Count 291 Sodium 140 Potassium 3.8 Creatinine 0.73 Estimated GFR > 60 Fasting Glucose 189 H Hemoglobin A1c % 7.7 H Calcium 10.1 D AST 16 ALT 11 Triglycerides 112 Cholesterol 141 LDL Cholesterol, Calc 69 HDL Cholesterol 50 Vitamin B12 453 25-OH Vitamin D Total 46.8 TSH 3.61 Free T4 1.42 Ur Specific [place] 1.020 Urine Protein 100 (2+) H Urine Glucose (UA) Negative Urine Blood Moderate (2+) H Urine Nitrite Positive H Ur Leukocyte Esterase Large (3+) H Microalb/Creat Ratio 134.0 H Assessment and Plan Assessment & Plan (1) Annual physical exam: Code(s): Z00.00 - Encounter for general adult medical examination without abnormal findings Plan: Results of her labs done a few days ago reviewed and discussed with patient and her sister She has never had a screening colonoscopy done in the past (by choice) as she has been afraid to use the bowel prep She was sent for some CT by gastroenterology a few years ago as a crude alternative and her CT came back negative She also vaguely recalls having some type of stool testing done (Fit testing?) a few years ago that came out okay She no longer needs to go for her routine breast or cervical cancer screening at her age (2) Pure hypercholesterolemia: Code(s): E78.00 - Pure hypercholesterolemia, unspecified Plan: Reinforced low cholesterol diet Continue Atorvastatin 20 mg QD Will recheck her labs and fasting lipids in 4 months for follow-up (3) Diabetes mellitus: Code(s): E11.9 - Type 2 diabetes mellitus without complications Qualifiers: Diabetes mellitus type: type 2 Diabetes mellitus computer terminal operator insulin use: without computer terminal operator use Diabetes mellitus complication status: without complication Qualified Code(s): E11.9 - Type 2 diabetes mellitus without complications Plan: Her HgbA1c has remained unchanged at 7.7% on her labs done a few days ago - goal is at least < 7.5% Reinforced diabetic diet Patient admits to eating muffins and sweets often lately; she is advised to stop or risk having to take more medications later on for her diabetes, including insulin injections Continue Metformin ER 500 mg QD for now Will recheck her FBS and HgbA1c in 4 months for follow up (4) PAF (paroxysmal atrial fibrillation): Code(s): I48.0 - Paroxysmal atrial fibrillation Plan: Patient is currently still in AF but remains rate-controlled Continue Metoprolol ER 25 mg QD Continue Eliquis 2.5 mg BID for thromboembolism prophylaxis Follow up with cardiology as scheduled (5) Coronary artery disease: Comment: S/P NSTEMI in 2015 and in 04/2023 Code(s): I25.10 - Atherosclerotic heart disease of [place] coronary artery without angina pectoris Qualifiers: Coronary Disease-Associated Artery/Lesion type: [place] artery [place] vs. transplanted heart: [place] heart Associated angina: without angina Qualified Code(s): I25.10 - Atherosclerotic heart disease of [place] coronary artery without angina pectoris Plan: Is currently asymptomatic Continue Metoprolol ER 25 mg QD; Aspirin 81 mg was discontinued by cardiology previously Apparently had another NSTEMI episode in April 2023; pharmacologic stress testing done subsequently came out normal Follow up with cardiology as scheduled (6) Hypothyroidism: Code(s): E03.9 - Hypothyroidism, unspecified Qualifiers: Hypothyroidism type: acquired Qualified Code(s): E03.9 - Hypothyroidism, unspecified Plan: Her TSH and free T4 were both normal on her recent labs done a few days ago TPO Ab checked last year was normal Continue Levothyroxine 88 mcg QD Will consider referring to endocrinology for further evaluation if her TSH level increases again and free T4 remains normal or low normal - possible Grave's disease Will recheck her TFTs in 4 months for follow up (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 Bernal Code(s): I89.0 - Lymphedema, not elsewhere classified Plan: Continue HCTZ 12.5 mg Q AM Reminded again that management of lymphedema is difficult and often involves a multimodal approach, including diuretics, compression stockings and leg elevation and even with these, it is often not possible to eliminate the symptoms completely and sometimes, the best that can be done is minimizing symptoms as best as possible Follow up with vascular surgery as scheduled (9) COPD (chronic obstructive pulmonary disease): Code(s): J44.9 - Chronic obstructive pulmonary disease, unspecified Qualifiers: COPD type: unspecified COPD Qualified Code(s): J44.9 - Chronic obstructive pulmonary disease, unspecified Plan: She appears to be experiencing some exacerbation of her COPD, based on her current lung findings Will start her empirically on Amoxicillin 500 mg Q 8 hours x 7 days and Benzonatate 100 mg BID-TID PRN for her cough (10) Vitamin D deficiency: Code(s): E55.9 - Vitamin D deficiency, unspecified Plan: Corrected - continue Vitamin D3 1000 units QD (11) Overactive bladder: Code(s): N32.81 - Overactive bladder Plan: Continue Oxybutynin ER 15 mg Q HS Will consider referral to urology if her urinary symptoms worsen (12) Alternating constipation and diarrhea: Code(s): R19.8 - Other specified symptoms and signs involving the digestive system and abdomen Plan: Was referred to GI previously for further evaluation and management but patient decided she did not want to go and had her appt cancelled States that she has been experiencing increased constipation and bloating lately She is again encouraged to increase her oral fluid intake and dietary fiber Will start her on Senna 8.6 mg Q HS PRN (13) Anxiety: Code(s): F41.9 - Anxiety disorder, unspecified Plan: Continue Citalopram 40 mg QD and Lorazepam 0.5 mg QD PRN Plan Follow up in 4 months Orders: Orders Thyroid Stimulating Hormone 4 Months E03.9 - Hypothyroidism, unspecified Comprehensive [place]. Panel Fast 4 Months E78.00 - Pure hypercholesterolemia, unspecified Free T4 (Free Thyroxine) 4 Months E03.9 - Hypothyroidism, unspecified Vitamin D 25-OH Total 4 Months E55.9 - Vitamin D deficiency, unspecified UA CC w/rflx Micro + Cult 4 Months R30.0 - Dysuria Complete Blood Count Auto Diff 4 Months D64.9 - Anemia, unspecified Medications: New sennosides (senna) 8.6 mg PO BEDTIME 30 days PRN 30 tabs 3RF constipation amoxicillin 500 mg PO Q8H 7 days 21 caps 0RF benzonatate 100 mg PO BID-TID 10 days PRN 30 caps 1RF cough Coding Level of Care Code Est Pt Prev Care >65y(02152) Diagnoses Annual physical exam Z00.00 Pure hypercholesterolemia E78.00 Type 2 diabetes mellitus without complication, without long-term current use of insulin E11.9 Diabetes mellitus type: type 2 Diabetes mellitus custodial insulin use: without computer terminal operator use Diabetes mellitus complication status: without complication PAF (paroxysmal atrial fibrillation) I48.0 Coronary artery disease involving [place] coronary artery of [place] heart without angina pectoris I25.10 Coronary Disease-Associated Artery/Lesion type: [place] artery [place] vs. transplanted heart: [place] heart Associated angina: without angina Acquired hypothyroidism E03.9 Hypothyroidism type: acquired [place] inversus Q89.3 Lymphedema I89.0 Chronic obstructive pulmonary disease, unspecified COPD type J44.9 COPD type: unspecified COPD Vitamin D deficiency E55.9 Overactive bladder N32.81 Alternating constipation and diarrhea R19.8 Anxiety F41.9 Additional Codes JOYCELYN-7 Assessment Billing - JOYCELYN-7 Assessment Tool: JOYCELYN-7 Assessment [id number] ([id number])
[2024-03-06 14:04] VITALS: BP 126/64; PULSE 85; O2SAT 95; BMI 20.5
== END 2024-03-06 14:43 | disposition home or self-care (01) ==
PROVIDERS: PCP Internal Medicine; Visit Provider Internal Medicine
DX: Z00.00 Encounter for general adult medical examination without abnormal findings (principal); E11.9 Type 2 diabetes mellitus without complications; I48.0 Paroxysmal atrial fibrillation; J44.9 Chronic obstructive pulmonary disease, unspecified; E78.00 Pure hypercholesterolemia, unspecified; I25.10 Atherosclerotic heart disease of native coronary artery without angina pectoris; E03.9 Hypothyroidism, unspecified; Q89.3 Situs inversus; I89.0 Lymphedema, not elsewhere classified; E55.9 Vitamin D deficiency, unspecified; N32.81 Overactive bladder; R19.8 Other specified symptoms and signs involving the digestive system and abdomen
CPT/HCPCS: 99397

== ENCOUNTER 2024-06-09 10:01 | Outpatient (AMB) | payer OTHER, SELFPAY ==
[2024-06-09 10:02] VITALS: BP 124/64; PULSE 67; BMI 21.8
--- NOTE | 2024-06-09 10:02 | A.OFFVIS_ITS ---
Vital Signs 06/09/24 10:02 Height 5 ft 4 in Weight 126 lb 15.78 oz BMI 21.8 BP 124/64 Blood Pressure Location Lt brachial Position Sitting Pulse 67 Intake Visit Reasons: 6 mth f/up Rn Cardiac Required: No Fire Prevention Bureau Captain: Fire Prevention Bureau Captain Present Accompanied by: Sister Allergies Sulfa (Sulfonamide Antibiotics) [SULFA(SULFONAMIDE ANTIBIOTICS)] Allergy (Severe, Verified 03/06/24 14:13) RASH latex [Latex] Allergy (Mild, Verified 03/06/24 14:13) RASH Medication List - Last Reconciled 06/09/24 by Casimiro Buchanan MD amlodipine 5 mg PO DAILY apixaban (Eliquis) 2.5 mg PO BID atorvastatin 20 mg PO DAILY cholecalciferol (vitamin D3) 25 mcg PO DAILY citalopram 40 mg PO DAILY 90 days dextromethorphan-guaifenesin 30-600 mg (Mucinex DM) 1 tab PO Q12H PRN 15 days hydrochlorothiazide 12.5 mg PO QAM levothyroxine 88 mcg PO QAM 90 days lorazepam 0.5 mg PO DAILY PRN 30 days metformin ER 500 mg PO QPM metoprolol succinate ER 25 mg PO DAILY nitroglycerin 0.4 mg sublingual Q5M PRN omeprazole 20 mg PO BID oxybutynin chloride ER 15 mg PO BEDTIME 28 days sennosides (senna) 8.6 mg PO BEDTIME PRN 30 days HPI Comments Details: Jelly returns for follow-up. She has a background of situs inversus/dextrocardia. Few years ago, she had an NSTEMI in the setting of gastroenteritis. Over time, she got diagnosed with atrial fibrillation and then put on beta-blockers and Eliquis. Then another episode of chest pain leading to evaluation at [facility] and then transferred to [facility]. Underwent pharmacological stress test, which was unremarkable and she was discharged. Since last seen, she is generally doing fine. No new concerns. No chest pains. Overall, getting along. Somewhat frail. [facility] Medical History Anxiety Overactive bladder Vitamin D deficiency Hypothyroidism COPD (chronic obstructive pulmonary disease) Pure hypercholesterolemia Diabetes mellitus Situs inversus Coronary artery disease Chronic venous insufficiency Lymphedema Chronic ulcer of right ankle Ulcer of right ankle Surgical History Status post laser ablation of incompetent vein (~2014) H/O left wrist surgery History of hernia repair History of cholecystectomy Family History Father No problems noted. Mother Hypertension Family history of thyroid problem Social History Housing: Assisted Living Facility Alcohol intake: never Patient Tobacco Use Status: Never used Tobacco e-Cigarette/Vaping Use: Never Used Second Hand Smoke Exposure: Yes service: No Current occupational status: retired Cognitive needs: Yes Hearing needs: Yes Vision needs: Yes Review of Systems Const All systems reviewed & are unremarkable except as noted in HPI and below Denies chills, Denies fatigue, Denies fever(s), Denies weight gain and Denies weight loss Eyes Reports as per HPI and Denies no additional complaints ENT Denies no additional complaints and Reports as per HPI Card Denies chest pain, Denies leg edema, Denies lightheadedness, Denies palpitations, Denies dyspnea on exertion and Denies orthopnea Resp Denies cough and Denies dyspnea on exertion GI Denies hematochezia and Denies change in stool character Reports as per HPI Musc Denies muscle weakness and Denies radiating pain into limb Skin/Breast Reports system reviewed and no additional complaints, except as documented Neuro Reports no additional complaints and Reports as per HPI Psych Reports no additional complaints and Reports as per HPI Endo Denies fatigue and Denies palpitations Jose/Lymph Reports no additional complaints and Reports as per HPI Aller/Immun Reports no additional complaints and Reports as per HPI Physical Exam Vital Signs: Last Vital Signs Pulse 67 06/09/24 10:02 BP 124/64 06/09/24 10:02 BMI result Body Mass Index 21.8 Const General: comfortable and no acute distress Orientation/consciousness: patient oriented x3 HEENT Other: Unremarkable Head: Yes normal to inspection Neck Neck: Yes normal visual inspection Chest Chest palpation & inspection: normal inspection of the chest Resp Auscultation: clear to auscultation bilaterally Cardio Palpation: normal PMI Heart sounds: S1 normal heart sound present, S2 normal heart sound present, no gallops, no murmurs and no rubs GI Palpation (GI): Soft to palpation Back/Spine/Pelvis Other: unremarkable Skin General skin exam: no rashes or lesions noted Neuro General: patient oriented x3 Extrem General: Yes normal to inspection Psych Mental Status: mental status grossly normal Office Procedures EKG Details: EKG with sinus rhythm at 67/Min; can not exclude old septal infarct; ST depression laterally. Overall, similar to prior. [id number], Complete Assessment & Plan Assessment & Plan (1) Atherosclerotic cardiovascular disease: Code(s): I25.10 - Atherosclerotic heart disease of [place] coronary artery without angina pectoris Category: Medical Plan: In the perfusion imaging from [facility] from April 2023, no evidence of fixed or reversible perfusion defects after regadenoson. Her EKG does look abnormal and she also had elevated troponins. Hence she still has probability of underlying CAD. In the absence of symptoms, just continue medications. Continue statins. Last LDL 69 mg/dL. (2) PAF (paroxysmal atrial fibrillation): Code(s): I48.0 - Paroxysmal atrial fibrillation Category: Medical Plan: Continue beta-blockers and Eliquis. (3) Essential hypertension: Code(s): I10 - Essential (primary) hypertension Category: Medical Plan: Continue amlodipine 5 mg daily. (4) Situs inversus with dextrocardia: Code(s): Q89.3 - Situs inversus Category: Medical Plan: Congenital. No specific management. Plan Discussed plan with family who came for appointment. Coding Level of Care Code Est Pt Level 4 (79057) Diagnoses Atherosclerotic cardiovascular disease I25.10 PAF (paroxysmal atrial fibrillation) I48.0 Essential hypertension I10 Situs inversus with dextrocardia Q89.3 CPT Codes EKG - CPT: 68060-[id number], Complete ([id number])
== END 2024-06-09 10:28 | disposition home or self-care (01) ==
PROVIDERS: PCP Internal Medicine; Visit Provider Internal Medicine
DX: I25.10 Atherosclerotic heart disease of native coronary artery without angina pectoris (principal); I48.0 Paroxysmal atrial fibrillation; I10 Essential (primary) hypertension; Q89.3 Situs inversus
CPT/HCPCS: 93010; 99214

== ENCOUNTER → 2024-06-09 10:01 | Outpatient (BNVA) | payer OTHER, SELFPAY | PROVIDERS: PCP Internal Medicine; Visit Provider Internal Medicine | DX: I25.10 Atherosclerotic heart disease of native coronary artery without angina pectoris (principal); I48.0 Paroxysmal atrial fibrillation; I10 Essential (primary) hypertension; Q89.3 Situs inversus; Z79.01 Long term (current) use of anticoagulants; Z79.899 Other long term (current) drug therapy | CPT/HCPCS: 93005; 99212 ==

== ENCOUNTER 2024-07-03 09:49 | Outpatient (REF) | payer OTHER, SELFPAY ==
[2024-07-03 10:08] LABS: MANUAL DIFF FLAG NO
[2024-07-03 11:02] LABS: Basophils Absolute Auto 0.1 X10*3/uL (0.0-0.2); Basophils Percent Auto 0.8 % (0-2); Eosinophils Absolute Auto 0.1 X10*3/uL (0.0-0.4); Eosinophils Percent Auto 2.1 % (0-4); Hematocrit 39.7 % (37.0-47.0); Hemoglobin 12.9 g/dl (12.0-16.0); Imm Gran Abs Auto 0.04 X10*3/uL (0.00-0.03); Imm Gran Pct Auto 0.6 % (0.0-0.4); Lymphocytes Absolute Auto 1.1 X10*3/uL (1.2-4.9); Mean Corpuscular HGB Conc 32.5 g/dl (31.0-35.0); Mean Corpuscular Volume 92.3 fL (80.0-98.0); Mean Platelet Volume 10.4 fL (9.4-12.3); Monocytes Absolute Auto 0.6 X10*3/uL (0.1-1.2); Monocytes Percent Auto 10.1 % (2-11); Neutrophils Absolute Auto 4.3 x10*3/uL (2.0-8.3); Neutrophils Percent Auto 68.4 % (45-73); Platelet Count 264 X10*3/uL (160-400); Red Cell Distribution Width 14.7 % (11.0-16.0); White Blood Count 6.3 X10*3/uL (4.8-10.8)
[2024-07-03 12:00] LABS: Alanine Aminotransferase 9 U/L (0-31); Albumin Level 4.2 g/dL (3.5-5.0); Alkaline Phosphatase 69 U/L (39-117); Anion Gap 13 (12-20); Aspartate Amino Transferase 12 U/L (5-31); Bilirubin Total 0.7 mg/dL (0.0-1.0); Blood Urea Nitrogen 19 mg/dL (9-16); Carbon Dioxide 29 mmol/L (22-29); Chloride 100 mmol/L (96-108); Estimated Glomerular Filt Rate > 60; Glucose Fasting 157 mg/dL (60-99); Potassium 3.4 mmol/L (3.3-5.1); Sodium 139 mmol/L (135-145); Total Protein 6.9 g/dL (6.5-8.0)
[2024-07-03 12:05] LABS: Free T4 (Free Thyroxine) 1.36 ng/dL (0.71-1.85); Thyroid Stimulating Hormone 2.59 uIU/mL (0.32-4.0); Vitamin D 25-OH Total 47.1 ng/mL (>30)
== END 2024-07-03 09:50 | disposition home or self-care (01) ==
LOC: HO.LAB 09:49
PROVIDERS: PCP Internal Medicine; Visit Provider Internal Medicine
DX: D64.9 Anemia, unspecified (principal); E78.00 Pure hypercholesterolemia, unspecified; E03.9 Hypothyroidism, unspecified; E55.9 Vitamin D deficiency, unspecified
CPT/HCPCS: 36415; 80053; 82306; 84439; 84443; 85025

== ENCOUNTER 2024-07-10 13:30 | Outpatient (AMB) | payer OTHER, SELFPAY ==
--- NOTE | 2024-07-10 13:48 | MHC.PC.OV ---
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: No Accompanied by: Daughter Allergies Sulfa (Sulfonamide Antibiotics) [SULFA(SULFONAMIDE ANTIBIOTICS)] Allergy (Severe, Verified 07/10/24 14:05) RASH latex [Latex] Allergy (Mild, Verified 07/10/24 14:05) RASH Medication List - Last Reconciled 07/10/24 by David Gerard MD amlodipine 5 mg PO DAILY amlodipine 5 mg PO DAILY apixaban (Eliquis) 2.5 mg PO BID atorvastatin 20 mg PO DAILY cholecalciferol (vitamin D3) 25 mcg PO DAILY citalopram 40 mg PO DAILY 90 days dextromethorphan-guaifenesin 30-600 mg (Mucinex DM) 1 tab PO Q12H PRN 15 days hydrochlorothiazide 12.5 mg PO QAM levothyroxine 88 mcg PO QAM 90 days lorazepam 0.5 mg PO DAILY PRN 30 days metformin ER 500 mg PO QPM metoprolol succinate ER 25 mg PO DAILY nitroglycerin 0.4 mg sublingual Q5M PRN nitroglycerin 0.4 mg sublingual Q5M PRN omeprazole 20 mg PO BID oxybutynin chloride ER 15 mg PO BEDTIME sennosides (senna) 8.6 mg PO BEDTIME PRN 30 days Tobacco use date assessed: 03/06/24 Dental Screening Dental Screen Date: 03/06/24 HPI hyperlipidemia, hypothyroidism HPI Details Patient comes in today for her follow up visit States that she feels okay She denies any headaches or dizziness Denies any chest pains, no SOB No nausea/vomiting, no abdominal pain No change in bowel habits noted She needs several of her Rx refilled Had her follow up labs done last week - to discuss her results [facility] Medical History Anxiety Overactive bladder Vitamin D deficiency Hypothyroidism COPD (chronic obstructive pulmonary disease) Pure hypercholesterolemia Diabetes mellitus Situs inversus Coronary artery disease Chronic venous insufficiency Lymphedema Chronic ulcer of right ankle Ulcer of right ankle Surgical History Status post laser ablation of incompetent vein (~2014) H/O left wrist surgery History of hernia repair History of cholecystectomy Family History Father No problems noted. Mother Hypertension Family history of thyroid problem Social History Housing: Assisted Living Facility Alcohol intake: never Patient Tobacco Use Status: Never used Tobacco e-Cigarette/Vaping Use: Never Used Second Hand Smoke Exposure: Yes service: No Current occupational status: retired Cognitive needs: Yes Hearing needs: Yes Vision needs: Yes Questionnaire Thrive Questionnaire Date Thrive assessed: 03/06/24 JOYCELYN-7 AMB Questionnaire JOYCELYN-7 Date JOYCELYN - 7 assessed: 03/06/24 Source: Developed by Drs. Gabriel Duke, Stephanie Ayala, Mihai Gilliland and colleagues, with an educational christina from [employer]. Review of Systems Const Reports difficulty sleeping (at times - Lorazepam helps), Denies fatigue, Denies fever(s) and Denies headache(s) ENT Denies dysphagia, Denies dizziness, Denies otalgia, Denies headache(s), Denies neck pain, Denies odynophagia and Denies sore throat Card Denies chest pain, Denies palpitations and Denies dyspnea Resp Denies chest congestion, Denies cough, Denies dyspnea and Denies wheezing GI Denies abdominal pain, Reports constipation (on and off - better controlled lately with fiber supplements), Denies dysphagia, Denies heartburn, Reports diarrhea (on and off - better controlled lately with fiber supplements), Denies nausea, Denies odynophagia and Denies vomiting Denies difficulty voiding, Reports nocturia (increasing lately), Denies dysuria and Reports urinary incontinence (occasionally) Musc Denies back pain and Denies neck pain Skin/Breast Denies rash Neuro Denies dizziness and Denies headache(s) Psych Denies anxiety and Denies depression Endo Denies fatigue and Denies palpitations Jose/Lymph Details: on and off swelling of both lower extremities - worse on the left leg Denies easy bruising Aller/Immun Denies wheezing Physical exam (Primary Care) Vital Signs: Last Vital Signs Pulse 56 07/10/24 13:49 BP 122/72 07/10/24 13:49 Pulse Ox 97 07/10/24 13:49 Oxygen Delivery Method Room Air 07/10/24 13:49 BMI result Body Mass Index 21.8 Tobacco/Smoking Status: Tobacco use Status Tobacco use date assessed 03/06/24 07/10/24 13:48 Patient Tobacco Use Status Never used Tobacco 07/10/24 13:48 e-Cigarette/Vaping Use Never Used 07/10/24 13:48 Thrive Assessment: Date of Thrive Assessment Date Thrive assessed 03/06/24 07/10/24 13:48 Const General: no acute distress and alert HENMT Ears: TM's normal bilaterally and EAC's normal Throat: Yes posterior oropharynx normal and Yes tonsils normal (no TP congestion noted) Neck Neck: Yes no lymphadenopathy and Yes supple Thyroid: Thyroid normal Resp Auscultation: clear to auscultation bilaterally, no rales and no wheezes Cardio Other: * 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 INVERSUS Rate: regular rate Rhythm: abnormal rhythm irregularly irregular Heart sounds: no murmurs GI Palpation (GI): Soft to palpation and nontender Auscultation: normal bowel sounds General: Yes no CVA tenderness Back/Spine/Pelvis Back: no CVA tenderness Thoracic/Lumbar Spine: thoracic and lumbar spine normal to inspection Skin Rashes: no rashes Neuro Gait exam (Neuro): Assistive device used (walker) Extrem General: No clubbing, No cyanosis and Yes edema (2+ edema on the right lower extremity; trace edema on the left side) Results Reviewed Results Reviewed: Laboratory Tests 07/03/24 10:07 WBC 6.3 Hgb 12.9 Hct 39.7 Plt Count 264 Sodium 139 Potassium 3.4 Creatinine 0.72 Estimated GFR > 60 Fasting Glucose 157 H Calcium 10.0 AST 12 ALT 9 25-OH Vitamin D Total 47.1 TSH 2.59 Free T4 1.36 Assessment and Plan Assessment & Plan (1) Pure hypercholesterolemia: Code(s): E78.00 - Pure hypercholesterolemia, unspecified Plan: Results of her labs done last week reviewed and discussed with patient Reinforced low cholesterol diet Continue Atorvastatin 20 mg QD Will recheck her labs and fasting lipids in 4 months for follow-up (2) Diabetes mellitus: Code(s): E11.9 - Type 2 diabetes mellitus without complications Qualifiers: Diabetes mellitus type: type 2 Diabetes mellitus residential insulin use: without manager terminal use Diabetes mellitus complication status: without complication Qualified Code(s): E11.9 - Type 2 diabetes mellitus without complications Plan: In-office HgbA1c done today is at 7.3% (HgbA1c was at 7.7% a few months ago) - goal is at least < 7.5% Reinforced diabetic diet Continue Metformin ER 500 mg QD for now Will recheck her FBS and HgbA1c in 4 months for follow up (3) PAF (paroxysmal atrial fibrillation): Code(s): I48.0 - Paroxysmal atrial fibrillation Plan: Patient is currently still in AF but remains rate-controlled Continue Metoprolol ER 25 mg QD Continue Eliquis 2.5 mg BID for thromboembolism prophylaxis Follow up with cardiology as scheduled (4) Coronary artery disease: Comment: S/P NSTEMI in 2015 and in 04/2023 Code(s): I25.10 - Atherosclerotic heart disease of [place] coronary artery without angina pectoris Qualifiers: Coronary Disease-Associated Artery/Lesion type: [place] artery [place] vs. transplanted heart: [place] heart Associated angina: without angina Qualified Code(s): I25.10 - Atherosclerotic heart disease of [place] coronary artery without angina pectoris Plan: Is currently asymptomatic Continue Metoprolol ER 25 mg QD; Aspirin 81 mg was discontinued by cardiology previously Apparently had another NSTEMI episode in April 2023; pharmacologic stress testing done subsequently came out normal Follow up with cardiology as scheduled (5) Hypothyroidism: Code(s): E03.9 - Hypothyroidism, unspecified Qualifiers: Hypothyroidism type: acquired Qualified Code(s): E03.9 - Hypothyroidism, unspecified Plan: Her TSH and free T4 were both normal on her recent labs done last week TPO Ab checked last year was normal Continue Levothyroxine 88 mcg QD Will consider referring to endocrinology for further evaluation if her TSH level increases again and free T4 remains normal or low normal - possible Grave's disease Will recheck her TFTs in 4 months for follow up (6) Situs inversus: Code(s): Q89.3 - Situs inversus Plan: No treatment or intervention is indicated (7) Lymphedema: Comment: S/P EVLT of bilateral lower [place] [address] Bernal Code(s): I89.0 - Lymphedema, not elsewhere classified Plan: Continue HCTZ 12.5 mg Q AM Reminded again that management of lymphedema is difficult and often involves a multimodal approach, including diuretics, compression stockings and leg elevation and even with these, it is often not possible to eliminate the symptoms completely and sometimes, the best that can be done is minimizing symptoms as best as possible Follow up with vascular surgery as scheduled (8) COPD (chronic obstructive pulmonary disease): Code(s): J44.9 - Chronic obstructive pulmonary disease, unspecified Qualifiers: COPD type: unspecified COPD Qualified Code(s): J44.9 - Chronic obstructive pulmonary disease, unspecified Plan: She currently appears controlled / stable with regards to her COPD, with no acute symptoms (9) Vitamin D deficiency: Code(s): E55.9 - Vitamin D deficiency, unspecified Plan: Continue Vitamin D3 1000 units QD (10) Overactive bladder: Code(s): N32.81 - Overactive bladder Plan: Continue Oxybutynin ER 15 mg Q HS Will consider referral to urology if her urinary symptoms worsen (11) Alternating constipation and diarrhea: Code(s): R19.8 - Other specified symptoms and signs involving the digestive system and abdomen Plan: She was referred to GI previously for further evaluation and management but patient decided she did not want to go and had her appt cancelled States that her GI symptoms have been well-controlled lately She is again encouraged to continue to increase her oral fluid intake and dietary fiber Continue Senna 8.6 mg Q HS PRN (12) Anxiety: Code(s): F41.9 - Anxiety disorder, unspecified Plan: Continue Citalopram 40 mg QD and Lorazepam 0.5 mg QD PRN Plan Follow up in 4 months Orders: Orders Thyroid Stimulating Hormone 4 Months E03.9 - Hypothyroidism, unspecified Free T4 (Free Thyroxine) 4 Months E03.9 - Hypothyroidism, unspecified Comprehensive [place]. Panel Fast 4 Months E78.00 - Pure hypercholesterolemia, unspecified Complete Blood Count Auto Diff 4 Months D64.9 - Anemia, unspecified Lipid Panel 4 Months E78.00 - Pure hypercholesterolemia, unspecified UA CC w/rflx Micro + Cult 4 Months R30.0 - Dysuria Microalbumin, Random (w Creat) 4 Months E11.9 - Type 2 diabetes mellitus without complications Vitamin D 25-OH Total 4 Months E55.9 - Vitamin D deficiency, unspecified Vitamin B12 and Folate 4 Months E53.8 - Deficiency of other specified B group vitamins Medications: Refilled levothyroxine 88 mcg PO QAM 90 days 90 tabs 3RF E03.9 - Hypothyroidism, unspecified nitroglycerin do not exceed 3 doses per episode 0.4 mg sublingual Q5M PRN 30 tabs 5RF chest pain R07.2 - Precordial pain sennosides (senna) 8.6 mg PO BEDTIME 30 days PRN 30 tabs 3RF constipation amlodipine 5 mg PO DAILY 90 tabs 3RF Coding Level of Care Code Est Pt Level 4 (49906) Complex EM visit Add On G2211 Diagnoses Pure hypercholesterolemia E78.00 Type 2 diabetes mellitus without complication, without long-term current use of insulin E11.9 Diabetes mellitus type: type 2 Diabetes mellitus manager terminal insulin use: without manager terminal use Diabetes mellitus complication status: without complication PAF (paroxysmal atrial fibrillation) I48.0 Coronary artery disease involving [place] coronary artery of [place] heart without angina pectoris I25.10 Coronary Disease-Associated Artery/Lesion type: [place] artery [place] vs. transplanted heart: [place] heart Associated angina: without angina Acquired hypothyroidism E03.9 Hypothyroidism type: acquired Situs inversus Q89.3 Lymphedema I89.0 Chronic obstructive pulmonary disease, unspecified COPD type J44.9 COPD type: unspecified COPD Vitamin D deficiency E55.9 Overactive bladder N32.81 Alternating constipation and diarrhea R19.8 Anxiety F41.9
[2024-07-10 13:49] VITALS: BP 122/72; PULSE 56; O2SAT 97; BMI 21.8
== END 2024-07-10 14:46 | disposition home or self-care (01) ==
PROVIDERS: PCP Internal Medicine; Visit Provider Internal Medicine
DX: E78.00 Pure hypercholesterolemia, unspecified (principal); E11.9 Type 2 diabetes mellitus without complications; I48.0 Paroxysmal atrial fibrillation; J44.9 Chronic obstructive pulmonary disease, unspecified; I25.10 Atherosclerotic heart disease of native coronary artery without angina pectoris; E03.9 Hypothyroidism, unspecified; Q89.3 Situs inversus; I89.0 Lymphedema, not elsewhere classified; E55.9 Vitamin D deficiency, unspecified; N32.81 Overactive bladder; R19.8 Other specified symptoms and signs involving the digestive system and abdomen; F41.9 Anxiety disorder, unspecified
CPT/HCPCS: 99214; G2211

== ENCOUNTER 2024-11-06 09:46 | Outpatient (REF) | payer OTHER, SELFPAY ==
[2024-11-06 10:08] LABS: MANUAL DIFF FLAG NO
[2024-11-06 10:41] LABS: Basophils Absolute Auto 0.1 X10*3/uL (0.0-0.2); Basophils Percent Auto 0.9 % (0-2); Eosinophils Absolute Auto 0.2 X10*3/uL (0.0-0.4); Eosinophils Percent Auto 2.8 % (0-4); Hematocrit 37.5 % (37.0-47.0); Hemoglobin 12.2 g/dl (12.0-16.0); Imm Gran Abs Auto 0.04 X10*3/uL (0.00-0.03); Imm Gran Pct Auto 0.6 % (0.0-0.4); Lymphocytes Absolute Auto 1.2 X10*3/uL (1.2-4.9); Mean Corpuscular HGB Conc 32.5 g/dl (31.0-35.0); Mean Corpuscular Hemoglobin 28.5 pg (27.0-33.0); Mean Corpuscular Volume 87.6 fL (80.0-98.0); Mean Platelet Volume 9.8 fL (9.4-12.3); Monocytes Absolute Auto 0.7 X10*3/uL (0.1-1.2); Neutrophils Absolute Auto 4.4 x10*3/uL (2.0-8.3); Neutrophils Percent Auto 66.7 % (45-73); Platelet Count 280 X10*3/uL (160-400); Red Blood Count 4.28 X10*6/uL (4.20-5.50); Red Cell Distribution Width 15.4 % (11.0-16.0); White Blood Count 6.5 X10*3/uL (4.8-10.8)
[2024-11-06 11:30] LABS: Alanine Aminotransferase 10 U/L (0-31); Albumin Level 4.3 g/dL (3.5-5.0); Alkaline Phosphatase 70 U/L (39-117); Anion Gap 12 (12-20); Aspartate Amino Transferase 17 U/L (5-31); Bilirubin Total 0.7 mg/dL (0.0-1.0); Blood Urea Nitrogen 21 mg/dL (9-16); Calcium 9.9 mg/dL (8.4-10.2); Carbon Dioxide 31 mmol/L (22-29); Chloride 101 mmol/L (96-108); Cholesterol 130 mg/dL (<200); Estimated Glomerular Filt Rate > 60; Glucose Fasting 117 mg/dL (60-99); HDL Cholesterol 56 mg/dL (>40); LDL Cholesterol Calculated 62 mg/dL (<100); Potassium 3.9 mmol/L (3.3-5.1); Sodium 140 mmol/L (135-145); Total Protein 7.3 g/dL (6.5-8.0); Triglycerides 62 mg/dL (<150)
[2024-11-06 11:50] LABS: Free T4 (Free Thyroxine) 1.44 ng/dL (0.71-1.85); Thyroid Stimulating Hormone 4.29 uIU/mL (0.32-4.0); Vitamin D 25-OH Total 45.1 ng/mL (>30)
[2024-11-06 12:02] LABS: Folate 13.3 ng/mL (> or = 4.0); Vitamin B12 384 pg/mL (200-900)
== END 2024-11-06 09:47 | disposition home or self-care (01) ==
LOC: HO.LAB 09:46
PROVIDERS: PCP Internal Medicine; Visit Provider Internal Medicine
DX: D64.9 Anemia, unspecified (principal); E03.9 Hypothyroidism, unspecified; E53.8 Deficiency of other specified B group vitamins; E78.00 Pure hypercholesterolemia, unspecified; E55.9 Vitamin D deficiency, unspecified
CPT/HCPCS: 36415; 80053; 80061; 82306; 82607; 82746; 84439; 84443; 85025

== ENCOUNTER 2024-11-10 13:46 | Outpatient (AMB) | payer OTHER, SELFPAY ==
[2024-11-10 13:47] VITALS: BP 120/84; PULSE 104; O2SAT 97; BMI 21.2
--- NOTE | 2024-11-10 13:47 | A.OFFPC_ITS ---
Vital Signs 11/10/24 13:47 Height 5 ft 4 in Weight 123 lb 10.869 oz BMI 21.2 BP 120/84 Blood Pressure Location Lt brachial Position Sitting Pulse 104 H Pulse Source Pulse Oximeter Pulse Oximetry (%) 97 Oxygen Delivery Method Room Air Intake Visit Reasons: 4 Month F/U Adult Remedial Education Instructor Required: No Accompanied by: Self / Same As Patient Allergies Sulfa (Sulfonamide Antibiotics) [SULFA(SULFONAMIDE ANTIBIOTICS)] Allergy (Severe, Verified 11/10/24 14:20) RASH latex [Latex] Allergy (Mild, Verified 11/10/24 14:20) RASH Medication List - Last Reconciled 11/10/24 by David Gerard MD amlodipine 5 mg PO DAILY apixaban (Eliquis) 2.5 mg PO BID atorvastatin 20 mg PO DAILY cholecalciferol (vitamin D3) 25 mcg PO DAILY citalopram 40 mg PO DAILY 90 days dextromethorphan-guaifenesin 30-600 mg (Mucinex DM) 1 tab PO Q12H PRN 15 days hydrochlorothiazide 12.5 mg PO QAM levothyroxine 88 mcg PO QAM 90 days lorazepam 0.5 mg PO DAILY PRN 30 days metformin ER 500 mg PO QPM metoprolol succinate ER 25 mg PO DAILY nitroglycerin 0.4 mg sublingual Q5M PRN omeprazole 20 mg PO BID oxybutynin chloride ER 15 mg PO BEDTIME sennosides (senna) 8.6 mg PO BEDTIME PRN 30 days Tobacco use date assessed: 11/10/24 Fall risk assessment: 2 + Falls in past year Last assessed Fall Risk: 11/10/24 Dental Screening Dental Screen Date: 11/10/24 Did you have a dental visit in the last 12 months?: Yes Did you have a dental problem in the last 6 months where you did not have access to dental care?: No Was dental information given to patient?: Patient has dentist [facility] Medical History Anxiety Overactive bladder Vitamin D deficiency Hypothyroidism COPD (chronic obstructive pulmonary disease) Pure hypercholesterolemia Diabetes mellitus Situs inversus Coronary artery disease Chronic venous insufficiency Lymphedema Chronic ulcer of right ankle Ulcer of right ankle Surgical History Status post laser ablation of incompetent vein (~2014) H/O left wrist surgery History of hernia repair History of cholecystectomy Family History Father No problems noted. Mother Hypertension Family history of thyroid problem Social History Housing: Assisted Living Facility Alcohol intake: never Patient Tobacco Use Status: Never used Tobacco e-Cigarette/Vaping Use: Never Used Second Hand Smoke Exposure: Yes service: No Current occupational status: retired Cognitive needs: Yes Hearing needs: Yes Vision needs: Yes Questionnaire PHQ-9 Over the last 2 weeks, how often have you been bothered by any of the following problems? 1. Little interest or pleasure in doing things: not at all 2. Feeling down, depressed, or hopeless: not at all 3. Trouble falling or staying asleep, or sleeping too much: not at all 4. Feeling tired or having little energy: not at all 5. Poor appetite or overeating: not at all 6. Feeling bad about yourself - or that you are a failure or have let yourself or your family down: not at all 7. Trouble concentrating on things, such as reading the newspaper or watching television: not at all 8. Moving or speaking so slowly that other people could have noticed. Or the opposite - being so fidgety or restless that you have been moving around a lot more than usual: not at all 9. Thoughts that you would be better off or of hurting yourself in some way: not at all Total score: 0 Depression Screening Interpretation: Negative Depression Screening Done: Yes 76808 - PHQ-9 Billing: Yes Source: Developed by Drs. Gabriel Duke, Stephanie Ayala, Mihai Gilliland and colleagues, with an educational christina from [employer] Thrive Questionnaire Date Thrive assessed: 11/10/24 I am a: Patient What is your living situation today?: I have a steady place to live Within the past 12 months, did the food you bought not last and you didn't have the money to get more?: Never true Within the past 12 months, did you worry whether your food would run out before you got money to buy more?: Never true Do you have trouble paying for medicines?: No Do you have trouble getting transportation to medical appointments?: No Do you have trouble paying your heating and electricity bill?: No Do you have trouble taking care of your child, family member or friend?: No Do you have trouble with day-to-day activities such as bathing, preparing meals, shopping, managing finances, etc.?: No Are you currently unemployed and looking for a job?: No Are you interested in more education?: No Please select the resources that you would like help with: None Currently or been in a relationship where the following occur: No concerns reported THRIVE Score: 0 AUDIT C Alcohol Use Questionnaire (AUDIT-C) 3. How often do you have six or more drinks on one occasion?: Never Total Score: 0 JOYCELYN-7 AMB Questionnaire JOYCELYN-7 Date JOYCELYN - 7 assessed: 11/10/24 Feeling nervous, anxious, or on edge: 0 = Not at all Not being able to stop or control worryin = Not at all Worrying too much about different things: 0 = Not at all Trouble relaxin = Not at all Being so restless that it is hard to sit still: 0 = Not at all Becoming easily annoyed or irritable: 0 = Not at all Feeling afraid as if something awful might happen: 0 = Not at all Total JOYCELYN-7 score (0-4 normal; 5-9 mild; 10-14 moderate; 15-21 severe): 0 Source: Developed by Drs. Gabriel Duke, Stephanie Ayala, Mihai Gilliland and colleagues, with an educational christina from [employer]. Physical exam (Primary Care) Vital Signs: Last Vital Signs Pulse 104 H 11/10/24 13:47 BP 120/84 11/10/24 13:47 Pulse Ox 97 11/10/24 13:47 Oxygen Delivery Method Room Air 11/10/24 13:47 BMI result Body Mass Index 21.2 Tobacco/Smoking Status: Tobacco use Status Tobacco use date assessed 11/10/24 11/10/24 13:54 Patient Tobacco Use Status Never used Tobacco 11/10/24 13:54 e-Cigarette/Vaping Use Never Used 11/10/24 13:54 PHQ-9: PHQ-9 Score PHQ-9: Total score 0 11/10/24 14:18 Depression Screening Interpretation: Negative Thrive Assessment: Date of Thrive Assessment Date Thrive assessed 11/10/24 11/10/24 13:54 Currently or been in a relationship where the following occur: No concerns reported Results AMB Hemoglobin A1c AMB Hemoglobin A1c 7.3 % Last Edit by YENNY Calvin on 11/10/24 14 :19 Results Reviewed Results Reviewed: Laboratory Last Values Hgb A1c (Clinic) 7.3 % (4.0-6.0) H 11/10/24 14:00 Coding Level of Care Code Est Pt Level 4 (85754) Additional Codes PHQ-9 - 40663 - PHQ-9 Billing: Yes ([id number]) Assessment & Plan Assessment & Plan Orders: Orders Lipid Panel 4 Months E78.00 - Pure hypercholesterolemia, unspecified Vitamin B12 and Folate 4 Months E53.8 - Deficiency of other specified B group vitamins Microalbumin, Random (w Creat) 4 Months E11.9 - Type 2 diabetes mellitus without complications Hemoglobin A1c 4 Months E11.9 - Type 2 diabetes mellitus without complications AMB Hemoglobin A1c Today Z13.9 - Encounter for screening, unspecified Complete Blood Count Auto Diff 4 Months D64.9 - Anemia, unspecified Comprehensive [place]. Panel Fast 4 Months E78.00 - Pure hypercholesterolemia, unspecified Thyroid Stimulating Hormone 4 Months E03.9 - Hypothyroidism, unspecified Free T4 (Free Thyroxine) 4 Months E03.9 - Hypothyroidism, unspecified Vitamin D 25-OH Total 4 Months E55.9 - Vitamin D deficiency, unspecified UA CC w/rflx Micro + Cult 4 Months R30.0 - Dysuria Medications: New mirabegron ER (Myrbetriq) 25 mg PO BEDTIME 90 days 90 tabs 1RF Discontinued oxybutynin chloride ER Discontinued Reason: Doctor's Order 15 mg PO BEDTIME 90 tabs 1RF
== END 2024-11-10 14:43 | disposition home or self-care (01) ==
PROVIDERS: PCP Internal Medicine; Visit Provider Internal Medicine
DX: Z13.9 Encounter for screening, unspecified (principal)

== ENCOUNTER → 2024-11-10 13:46 | Outpatient (BNVA) | payer OTHER, SELFPAY | PROVIDERS: PCP Internal Medicine; Visit Provider Internal Medicine | DX: E78.00 Pure hypercholesterolemia, unspecified (principal); E11.9 Type 2 diabetes mellitus without complications; I48.0 Paroxysmal atrial fibrillation; I25.10 Atherosclerotic heart disease of native coronary artery without angina pectoris; E03.9 Hypothyroidism, unspecified; Q89.3 Situs inversus; J44.9 Chronic obstructive pulmonary disease, unspecified; I89.0 Lymphedema, not elsewhere classified; N32.81 Overactive bladder; R19.8 Other specified symptoms and signs involving the digestive system and abdomen; F41.9 Anxiety disorder, unspecified | CPT/HCPCS: 83036; 96127; 99212 ==

== ENCOUNTER 2024-12-09 11:16 | Outpatient (AMB) | payer OTHER, SELFPAY ==
[2024-12-09 11:20] VITALS: BP 110/80; PULSE 109; TEMP 36.1; O2SAT 98; BMI 20.7
--- NOTE | 2024-12-09 11:20 | A.OFFPC_ITS ---
Vital Signs 12/09/24 11:20 Height 5 ft 4 in Weight 120 lb 8 oz BMI 20.7 BP 110/80 Blood Pressure Location Lt brachial Position Sitting Pulse 109 H Pulse Source Pulse Oximeter Temp 97 F Temp Source Oral Pulse Oximetry (%) 98 Oxygen Delivery Method Room Air Intake Visit Reasons: Orthopedic shoe script Director Of Volunteer Services Required: No Accompanied by: Self / Same As Patient Allergies Sulfa (Sulfonamide Antibiotics) [SULFA(SULFONAMIDE ANTIBIOTICS)] Allergy (Severe, Verified 12/09/24 11:40) RASH latex [Latex] Allergy (Mild, Verified 12/09/24 11:40) RASH Medication List - Last Reconciled 12/09/24 by VIJAY Velez amlodipine 5 mg PO DAILY apixaban (Eliquis) 2.5 mg PO BID atorvastatin 20 mg PO DAILY cholecalciferol (vitamin D3) 25 mcg PO DAILY citalopram 40 mg PO DAILY 90 days dextromethorphan-guaifenesin 30-600 mg (Mucinex DM) 1 tab PO Q12H PRN 15 days hydrochlorothiazide 12.5 mg PO QAM levothyroxine 88 mcg PO QAM 90 days lorazepam 0.5 mg PO DAILY PRN 30 days metformin ER 500 mg PO QPM metoprolol succinate ER 25 mg PO DAILY mirabegron ER (Myrbetriq) 25 mg PO BEDTIME 90 days nitroglycerin 0.4 mg sublingual Q5M PRN omeprazole 20 mg PO BID sennosides (senna) 8.6 mg PO BEDTIME PRN 30 days Tobacco use date assessed: 12/09/24 Fall risk assessment: 2 + Falls in past year Last assessed Fall Risk: 12/09/24 Dental Screening Dental Screen Date: 12/09/24 Did you have a dental visit in the last 12 months?: Yes Did you have a dental problem in the last 6 months where you did not have access to dental care?: No Was dental information given to patient?: Patient has dentist HPI Orthopedic shoe script HPI Details Patient is a 84-year-old female patient of Dr. Gerard with significant past medical history of diabetes mellitus in chronic ulcer of right ankle The patient is presenting today with concerns of needing an orthopedic shoe wear The patient has a deformity of the right foot causing her foot to rolled outward as a result, she develops callus to the plantar lateral aspect of her right foot Patient reports that she has been seen the seed corn production manager that comes to her living center. The seed corn production manager shaved down her callus and recommended her for diabetic foot wear. [facility] Medical History Anxiety Overactive bladder Vitamin D deficiency Hypothyroidism COPD (chronic obstructive pulmonary disease) Pure hypercholesterolemia Diabetes mellitus Situs inversus Coronary artery disease Chronic venous insufficiency Lymphedema Chronic ulcer of right ankle Ulcer of right ankle Surgical History Status post laser ablation of incompetent vein (~2014) H/O left wrist surgery History of hernia repair History of cholecystectomy Family History Father No problems noted. Mother Hypertension Family history of thyroid problem Social History Housing: Assisted Living Facility Alcohol intake: never Patient Tobacco Use Status: Never used Tobacco e-Cigarette/Vaping Use: Never Used Second Hand Smoke Exposure: Yes service: No Current occupational status: retired Cognitive needs: Yes Hearing needs: Yes Vision needs: Yes Questionnaire PHQ-9 Over the last 2 weeks, how often have you been bothered by any of the following problems? 1. Little interest or pleasure in doing things: not at all 2. Feeling down, depressed, or hopeless: not at all 3. Trouble falling or staying asleep, or sleeping too much: not at all 4. Feeling tired or having little energy: not at all 5. Poor appetite or overeating: not at all 6. Feeling bad about yourself - or that you are a failure or have let yourself or your family down: not at all 7. Trouble concentrating on things, such as reading the newspaper or watching television: not at all 8. Moving or speaking so slowly that other people could have noticed. Or the opposite - being so fidgety or restless that you have been moving around a lot more than usual: not at all 9. Thoughts that you would be better off or of hurting yourself in some way: not at all Total score: 0 Depression Screening Interpretation: Negative Depression Screening Done: Yes 03952 - PHQ-9 Billing: Yes Source: Developed by Stephanie Gaytan Kurt Kroenke and colleagues, with an educational christina from [employer]. Thrive Questionnaire Date Thrive assessed: 12/09/24 I am a: Patient What is your living situation today?: I have a steady place to live Within the past 12 months, did the food you bought not last and you didn't have the money to get more?: Never true Within the past 12 months, did you worry whether your food would run out before you got money to buy more?: Never true Do you have trouble paying for medicines?: No Do you have trouble getting transportation to medical appointments?: No Do you have trouble paying your heating and electricity bill?: No Do you have trouble taking care of your child, family member or friend?: No Do you have trouble with day-to-day activities such as bathing, preparing meals, shopping, managing finances, etc.?: No Are you currently unemployed and looking for a job?: No Are you interested in more education?: No Please select the resources that you would like help with: None Currently or been in a relationship where the following occur: No concerns reported THRIVE Score: 0 AUDIT C Alcohol Use Questionnaire (AUDIT-C) 1. How often do you have a drink containing alcohol?: Never 3. How often do you have six or more drinks on one occasion?: Never Total Score: 0 Score Reviewed/Action Taken: Yes JOYCELYN-7 AMB Questionnaire JOYCELYN-7 Date JOYCELYN - 7 assessed: 12/09/24 Feeling nervous, anxious, or on edge: 0 = Not at all Not being able to stop or control worryin = Not at all Worrying too much about different things: 0 = Not at all Trouble relaxin = Not at all Being so restless that it is hard to sit still: 0 = Not at all Becoming easily annoyed or irritable: 0 = Not at all Feeling afraid as if something awful might happen: 0 = Not at all Total JOYCELYN-7 score (0-4 normal; 5-9 mild; 10-14 moderate; 15-21 severe): 0 Source: Developed by Stephanie Gaytan Kurt Kroenke and colleagues, with an educational christina from [employer]. JOYCELYN-7 Assessment Billing JOYCELYN-7 Assessment Tool: JOYCELYN-7 Assessment 55594 Review of Systems Const Details: Const Denies chills, Denies fatigue, Denies fever(s), Denies headache(s) and Denies weakness ENT Denies dizziness and Denies headache(s) Card Denies chest pain, Denies lightheadedness, Denies dyspnea and Denies other (Palpitations) Resp Denies cough, Denies dyspnea, Denies wheezing and Denies other ( shortness of breath) GI Denies abdominal pain, Denies melena, Denies hematochezia, Denies change in bowel habits, recurrent constipation Denies dyspepsia and Denies nausea Denies hematuria and Denies dysuria, reports urinay incontinence Musc Denies abnormal gait, Denies myalgias, Denies arthralgias, Denies numbness and Denies tingling Skin/Breast Denies rash, Denies unusual bruising and Denies wounds, right foot deformity, rolls outward, right outer foot callus Neuro Denies abnormal gait, Denies dizziness, Denies headache(s), Denies memory loss, Denies numbness, Denies Sensory deficit (Neuro), Denies tingling and Denies weakness Psych Denies anxiety, Denies depression, Denies memory loss Endo Denies cold intolerance, Denies fatigue, Denies heat intolerance, Denies polydipsia and Denies polyuria Aller/Immun Denies wheezing Physical exam (Primary Care) Vital Signs: Last Vital Signs Temp 97 F 12/09/24 11:20 Pulse 109 H 12/09/24 11:20 BP 110/80 12/09/24 11:20 Pulse Ox 98 12/09/24 11:20 Oxygen Delivery Method Room Air 12/09/24 11:20 BMI result Body Mass Index 20.7 Tobacco/Smoking Status: Tobacco use Status Tobacco use date assessed 12/09/24 12/09/24 11:28 Patient Tobacco Use Status Never used Tobacco 12/09/24 11:28 e-Cigarette/Vaping Use Never Used 12/09/24 11:28 PHQ-9: PHQ-9 Score PHQ-9: Total score 0 12/09/24 11:28 Depression Screening Interpretation: Negative Thrive Assessment: Date of Thrive Assessment Date Thrive assessed 12/09/24 12/09/24 11:28 Currently or been in a relationship where the following occur: No concerns reported Const Other: General: no acute distress and well developed Nutritional Appearance: well nourished Orientation/consciousness: patient oriented x3 [facility] Head: Yes normocephalic and Yes atraumatic Eyes General: appearance normal, both eyes and all related structures Pupils: Equal, round and reactive pupils present EOM: EOMs intact bilaterally Resp Effort & Inspection: normal respiratory effort Auscultation: clear to auscultation bilaterally Cardio Rate: regular rate Rhythm: regular rhythm Heart sounds: S1 normal heart sound present, S2 normal heart sound present, no gallops, no murmurs and no rubs hx of situs inversus, heart sound heard on the opposite chest of the chest GI Palpation (GI): No Abdominal aortic bruit present, Soft to palpation, nontender, No hepatosplenomegaly present and No Rebound tenderness present Auscultation: normal bowel sounds General: Yes no CVA tenderness Extrem General: BLE edema present, No calf tenderness, right foot mid-lateral plantar callus present, right ankle rolls outward. 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 insulin use: without residential use Diabetes mellitus complication status: without complication Additional Codes PHQ-9 - 17318 - PHQ-9 Billing: Yes ([id number]) JOYCELYN-7 Assessment Billing - JOYCELYN-7 Assessment Tool: JOYCELYN-7 Assessment [id number] ([id number]) Assessment & Plan Assessment & Plan (1) Deformity of right foot: Code(s): M21.961 - Unspecified acquired deformity of right lower leg Category: Medical Plan: patient reports that her right ankle has been deformed for a long time referral orthotic prosthetic in [place] (2) Tyloma: Code(s): L84 - Corns and callosities Category: Medical (3) Diabetes mellitus: Code(s): E11.9 - Type 2 diabetes mellitus without complications Category: Medical Qualifiers: Diabetes mellitus type: type 2 Diabetes mellitus residential insulin use: without residential use Diabetes mellitus complication status: without complication Qualified Code(s): E11.9 - Type 2 diabetes mellitus without complications Plan: mid-lateral plantar callus-podiatry recommends diabetic shoes Plan Follow up with podiatry Medications: New [Diabetic Shoes] One pair of diabetic shoe 1 ea 0RF E11.9 - Type 2 diabetes mellitus without complications, L84 - Corns and callosities, M21.961 - Unspecified acquired deformity of right lower leg
== END 2024-12-09 11:36 | disposition home or self-care (01) ==
PROVIDERS: PCP Internal Medicine
DX: E11.9 Type 2 diabetes mellitus without complications (principal); M21.961 Unspecified acquired deformity of right lower leg; L84 Corns and callosities

== ENCOUNTER → 2024-12-09 11:16 | Outpatient (BNVA) | payer OTHER, SELFPAY | PROVIDERS: PCP Internal Medicine | DX: M21.961 Unspecified acquired deformity of right lower leg (principal); L84 Corns and callosities; E11.9 Type 2 diabetes mellitus without complications | CPT/HCPCS: 96127; 99212 ==

== ENCOUNTER 2025-03-12 09:34 | Outpatient (REF) | payer OTHER, SELFPAY ==
[2025-03-12 10:45] LABS: Basophils Absolute Auto 0.1 X10*3/uL (0.0-0.2); Hematocrit 38.5 % (37.0-47.0); Imm Gran Abs Auto 0.02 X10*3/uL (0.00-0.03); Imm Gran Pct Auto 0.3 % (0.0-0.4); MANUAL DIFF FLAG SCAN; Mean Corpuscular Volume 88.5 fL (80.0-98.0); PLT CLUMP 1; Red Blood Count 4.35 X10*6/uL (4.20-5.50); Red Cell Distribution Width 15.8 % (11.0-16.0); SCAN SMEAR FLAG 1
[2025-03-12 10:47] LABS: Basophils Percent Auto 1.2 % (0-2); Eosinophils Absolute Auto 0.2 X10*3/uL (0.0-0.4); Eosinophils Percent Auto 3.5 % (0-4); Hemoglobin 12.7 g/dl (12.0-16.0); Lymphocytes Absolute Auto 1.2 X10*3/uL (1.2-4.9); Lymphocytes Percent Auto 17.6 % (20-40); Mean Corpuscular Hemoglobin 29.2 pg (27.0-33.0); Monocytes Absolute Auto 0.8 X10*3/uL (0.1-1.2); Monocytes Percent Auto 11.3 % (2-11); Neutrophils Absolute Auto 4.6 x10*3/uL (2.0-8.3); Neutrophils Percent Auto 66.1 % (45-73)
[2025-03-12 11:16] LABS: Mean Platelet Volume 11.5 fL (9.4-12.3); Platelet Count 221 X10*3/uL (160-400); White Blood Count 6.9 X10*3/uL (4.8-10.8)
[2025-03-12 11:17] LABS: SLIDE REVIEW VERIFIED
[2025-03-12 11:25] LABS: Estimated Average Glucose 151 mg/dL; Hemoglobin A1C 178.7607 umol/L; Hemoglobin A1c % 6.9 % (<6.0); Total Hemoglobin (HGBA1C) 3408.3678 umol/L
[2025-03-12 11:34] LABS: Alanine Aminotransferase 11 U/L (0-31); Albumin Level 4.2 g/dL (3.5-5.0); Alkaline Phosphatase 71 U/L (39-117); Anion Gap 11 (12-20); Aspartate Amino Transferase 21 U/L (5-31); Bilirubin Total 0.7 mg/dL (0.0-1.0); Blood Urea Nitrogen 19 mg/dL (9-16); Calcium 9.6 mg/dL (8.4-10.2); Carbon Dioxide 30 mmol/L (22-29); Chloride 104 mmol/L (96-108); Cholesterol 133 mg/dL (<200); Estimated Glomerular Filt Rate > 60; Glucose Fasting 137 mg/dL (60-99); HDL Cholesterol 60 mg/dL (>40); LDL Cholesterol Calculated 60 mg/dL (<100); Sodium 141 mmol/L (135-145); Total Protein 7.1 g/dL (6.5-8.0); Triglycerides 68 mg/dL (<150)
[2025-03-12 11:42] LABS: Free T4 (Free Thyroxine) 1.45 ng/dL (0.71-1.85); Thyroid Stimulating Hormone 4.04 uIU/mL (0.32-4.0); Vitamin D 25-OH Total 45.8 ng/mL (>30)
[2025-03-12 11:49] LABS: Folate 12.4 ng/mL (> or = 4.0); Vitamin B12 329 pg/mL (200-900)
== END 2025-03-12 09:35 | disposition home or self-care (01) ==
LOC: HO.LAB 09:34
PROVIDERS: PCP Internal Medicine; Visit Provider Internal Medicine
DX: E53.8 Deficiency of other specified B group vitamins (principal); D64.9 Anemia, unspecified; E78.00 Pure hypercholesterolemia, unspecified; E03.9 Hypothyroidism, unspecified; E11.9 Type 2 diabetes mellitus without complications; E55.9 Vitamin D deficiency, unspecified; R30.0 Dysuria
CPT/HCPCS: 36415; 80053; 80061; 82306; 82607; 82746; 83036; 84439; 84443; 85025

== ENCOUNTER 2025-03-16 13:28 | Outpatient (AMB) | payer OTHER, SELFPAY ==
--- NOTE | 2025-03-16 13:34 | MHC.PC.OV ---
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: No Accompanied by: Self / Same As Patient Allergies Sulfa (Sulfonamide Antibiotics) [SULFA(SULFONAMIDE ANTIBIOTICS)] Allergy (Severe, Verified 03/16/25 13:35) RASH latex [Latex] Allergy (Mild, Verified 03/16/25 13:35) RASH Tobacco use date assessed: 03/16/25 Fall risk assessment: 2 + Falls in past year Last assessed Fall Risk: 03/16/25 Dental Screening Dental Screen Date: 03/16/25 Did you have a dental visit in the last 12 months?: Yes Did you have a dental problem in the last 6 months where you did not have access to dental care?: No Was dental information given to patient?: Patient has dentist HPI hypothyroidism, OAB, DM, hyperlipidemia, PAF HPI Details Patient comes in today for her follow up visit States that she feels okay She denies any headaches or dizziness Denies any chest pains, no increased SOB No nausea/vomiting, no abdominal pain No change in bowel habits noted She continues to experience frequent urination and nocturia but denies any dysuria - states that her current Rx (Myrbetriq ER) is not really helping much She had her follow up labs done a few days ago - to discuss her results [facility] Medical History Anxiety Overactive bladder Vitamin D deficiency Hypothyroidism COPD (chronic obstructive pulmonary disease) Pure hypercholesterolemia Diabetes mellitus Situs inversus Coronary artery disease Chronic venous insufficiency Lymphedema Chronic ulcer of right ankle Ulcer of right ankle Surgical History Status post laser ablation of incompetent vein (~2014) H/O left wrist surgery History of hernia repair History of cholecystectomy Family History Father No problems noted. Mother Hypertension Family history of thyroid problem Social History (Reviewed 03/16/25 @ 13:35 by GINO Calvin Housing: Assisted Living Facility Alcohol intake: never Patient Tobacco Use Status: Never used Tobacco e-Cigarette/Vaping Use: Never Used Second Hand Smoke Exposure: Yes service: No Current occupational status: retired Cognitive needs: Yes Hearing needs: Yes Vision needs: Yes Questionnaire PHQ-9 Over the last 2 weeks, how often have you been bothered by any of the following problems? 1. Little interest or pleasure in doing things: not at all 2. Feeling down, depressed, or hopeless: not at all 3. Trouble falling or staying asleep, or sleeping too much: not at all 4. Feeling tired or having little energy: not at all 5. Poor appetite or overeating: not at all 6. Feeling bad about yourself - or that you are a failure or have let yourself or your family down: not at all 7. Trouble concentrating on things, such as reading the newspaper or watching television: not at all 8. Moving or speaking so slowly that other people could have noticed. Or the opposite - being so fidgety or restless that you have been moving around a lot more than usual: not at all 9. Thoughts that you would be better off or of hurting yourself in some way: not at all Total score: 0 Depression Screening Interpretation: Negative Depression Screening Done: Yes 77263 - PHQ-9 Billing: Yes Source: Developed by Drs. Gabriel Duke, Stephanie Ayala, Mihai Gilliland and colleagues, with an educational christina from [employer]. Thrive Questionnaire Date Thrive assessed: 03/16/25 I am a: Patient What is your living situation today?: I have a steady place to live Within the past 12 months, did the food you bought not last and you didn't have the money to get more?: Never true Within the past 12 months, did you worry whether your food would run out before you got money to buy more?: Never true Do you have trouble paying for medicines?: No Do you have trouble getting transportation to medical appointments?: No Do you have trouble paying your heating and electricity bill?: No Do you have trouble taking care of your child, family member or friend?: No Do you have trouble with day-to-day activities such as bathing, preparing meals, shopping, managing finances, etc.?: No Are you currently unemployed and looking for a job?: No Are you interested in more education?: No Please select the resources that you would like help with: None Currently or been in a relationship where the following occur: No concerns reported THRIVE Score: 0 AUDIT C Alcohol Use Questionnaire (AUDIT-C) 1. How often do you have a drink containing alcohol?: Never 3. How often do you have six or more drinks on one occasion?: Never Total Score: 0 Score Reviewed/Action Taken: Yes JOYCELYN-7 AMB Questionnaire JOYCELYN-7 Date JOYCELYN - 7 assessed: 03/16/25 Feeling nervous, anxious, or on edge: 0 = Not at all Not being able to stop or control worryin = Not at all Worrying too much about different things: 0 = Not at all Trouble relaxin = Not at all Being so restless that it is hard to sit still: 0 = Not at all Becoming easily annoyed or irritable: 0 = Not at all Feeling afraid as if something awful might happen: 0 = Not at all Total JOYCELYN-7 score (0-4 normal; 5-9 mild; 10-14 moderate; 15-21 severe): 0 Source: Developed by Drs. Gabriel Duke, Stephanie Ayala, Mihai Gilliland and colleagues, with an educational christina from [employer]. JOYCELYN-7 Assessment Billing JOYCELYN-7 Assessment Tool: JOYCELYN-7 Assessment 03254 Review of Systems Const Reports difficulty sleeping (at times - Lorazepam helps), Denies fatigue, Denies fever(s) and Denies headache(s) ENT Denies dysphagia, Denies dizziness, Denies otalgia, Denies headache(s), Denies neck pain, Denies odynophagia and Denies sore throat Card Denies chest pain, Denies palpitations and Denies dyspnea Resp Denies chest congestion, Denies cough, Denies dyspnea and Denies wheezing GI Denies abdominal pain, Reports constipation (on and off - better controlled lately with fiber supplements), Denies dysphagia, Denies heartburn, Reports diarrhea (on and off - better controlled lately with fiber supplements), Denies nausea, Denies odynophagia and Denies vomiting Denies difficulty voiding, Reports nocturia, Denies dysuria and Reports urinary incontinence (frequent now) Musc Denies back pain and Denies neck pain Skin/Breast Denies rash Neuro Denies dizziness and Denies headache(s) Psych Denies anxiety and Denies depression Endo Denies fatigue and Denies palpitations Jose/Lymph Details: on and off swelling of both lower extremities - worse on the left leg Denies easy bruising Aller/Immun Denies wheezing Physical exam (Primary Care) Vital Signs: Last Vital Signs Pulse 98 03/16/25 13:35 BP 112/68 03/16/25 13:35 Pulse Ox 97 03/16/25 13:35 Oxygen Delivery Method Room Air 03/16/25 13:35 BMI result Body Mass Index 19.4 Tobacco/Smoking Status: Tobacco use Status Tobacco use date assessed 03/16/25 03/16/25 13:43 Patient Tobacco Use Status Never used Tobacco 03/16/25 13:43 e-Cigarette/Vaping Use Never Used 03/16/25 13:43 PHQ-9: PHQ-9 Score PHQ-9: Total score 0 03/16/25 13:53 Depression Screening Interpretation: Negative Thrive Assessment: Date of Thrive Assessment Date Thrive assessed 03/16/25 03/16/25 13:43 Currently or been in a relationship where the following occur: No concerns reported Const General: no acute distress and alert HENMT Ears: TM's normal bilaterally and EAC's normal Throat: Yes posterior oropharynx normal and Yes tonsils normal (no TP congestion noted) Neck Neck: Yes no lymphadenopathy and Yes supple Thyroid: Thyroid normal Resp Auscultation: clear to auscultation bilaterally, no rales and no wheezes Cardio Other: * 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 INVERSUS Rate: regular rate Rhythm: abnormal rhythm irregularly irregular Heart sounds: no murmurs GI Palpation (GI): Soft to palpation and nontender Auscultation: normal bowel sounds General: Yes no CVA tenderness Back/Spine/Pelvis Back: no CVA tenderness Thoracic/Lumbar Spine: thoracic and lumbar spine normal to inspection Skin Rashes: no rashes Neuro Gait exam (Neuro): Assistive device used (walker) Extrem General: No clubbing, No cyanosis and Yes edema (2+ edema on the right lower extremity; trace edema on the left side) Results Reviewed Results Reviewed: Laboratory Tests 03/12/25 10:00 WBC 6.9 Hgb 12.7 Hct 38.5 Plt Count 221 Sodium 141 Potassium 4.0 Creatinine 0.58 Estimated GFR > 60 Fasting Glucose 137 H Hemoglobin A1c % 6.9 H Calcium 9.6 AST 21 ALT 11 Triglycerides 68 Cholesterol 133 LDL Cholesterol, Calc 60 HDL Cholesterol 60 Vitamin B12 329 25-OH Vitamin D Total 45.8 TSH 4.04 H Free T4 1.45 Coding Level of Care Code Est Pt Level 4 (46902) Complex EM visit Add On G2211 Diagnoses Pure hypercholesterolemia E78.00 Type 2 diabetes mellitus without complication, without long-term current use of insulin E11.9 Diabetes mellitus complication status: without complication Diabetes mellitus nursing home insulin use: without watermelon inspector use Diabetes mellitus type: type 2 PAF (paroxysmal atrial fibrillation) I48.0 Coronary artery disease involving [place] coronary artery of [place] heart without angina pectoris I25.10 Associated angina: without angina Coronary Disease-Associated Artery/Lesion type: [place] artery [place] vs. 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 Chronic obstructive pulmonary disease, unspecified COPD type J44.9 COPD type: unspecified COPD Lymphedema I89.0 Vitamin D deficiency E55.9 Overactive bladder N32.81 Alternating constipation and diarrhea R19.8 Anxiety F41.9 Additional Codes JOYCELYN-7 Assessment Billing - JOYCELYN-7 Assessment Tool: JOYCELYN-7 Assessment 96157 ([id number]) PHQ-9 - 53830 - PHQ-9 Billing: Yes ([id number]) Assessment & Plan Assessment & Plan (1) Pure hypercholesterolemia: Code(s): E78.00 - Pure hypercholesterolemia, unspecified Category: Medical Plan: Results of her labs done a few days ago reviewed and discussed with patient Reinforced low cholesterol diet Continue Atorvastatin 20 mg QD Will recheck her labs and fasting lipids in 4 months for follow-up (2) Diabetes mellitus: Code(s): E11.9 - Type 2 diabetes mellitus without complications Category: Medical Qualifiers: Diabetes mellitus complication status: without complication Diabetes mellitus watermelon inspector insulin use: without watermelon inspector use Diabetes mellitus type: type 2 Qualified Code(s): E11.9 - Type 2 diabetes mellitus without complications Plan: Her HgbA1c was 6.9% on her labs done a few days ago (in-office HgbA1c was previously at 7.3% a few months ago) - goal is at least < 7.5% Reinforced diabetic diet Continue Metformin ER 500 mg QD Will recheck her FBS and HgbA1c in 4 months for follow up (3) PAF (paroxysmal atrial fibrillation): Code(s): I48.0 - Paroxysmal atrial fibrillation Category: Medical Plan: Patient is currently still in AF but remains rate-controlled Continue Metoprolol ER 25 mg QD Continue Eliquis 2.5 mg BID for thromboembolism prophylaxis Follow up with cardiology as scheduled (4) Coronary artery disease: Comment: S/P NSTEMI in 2015 and in 04/2023 Code(s): I25.10 - Atherosclerotic heart disease of [place] coronary artery without angina pectoris Category: Medical Qualifiers: Associated angina: without angina Coronary Disease-Associated Artery/Lesion type: [place] artery [place] vs. transplanted heart: [place] heart Qualified Code(s): I25.10 - Atherosclerotic heart disease of [place] coronary artery without angina pectoris Plan: Patient is currently asymptomatic from a cardiac standpoint Continue Metoprolol ER 25 mg QD; Aspirin 81 mg was discontinued by cardiology previously She apparently had another NSTEMI episode in April 2023; pharmacologic stress testing done subsequently came out normal Follow up with cardiology as scheduled (5) Hypothyroidism: Code(s): E03.9 - Hypothyroidism, unspecified Category: Medical Qualifiers: Hypothyroidism type: acquired Qualified Code(s): E03.9 - Hypothyroidism, unspecified Plan: Her TSH was slightly elevated but her free T4 remains normal on her labs done a few days ago TPO Ab checked last year was normal Continue Levothyroxine 88 mcg QD Will consider referring to endocrinology for further evaluation if her TSH level increases again and free T4 remains normal or low normal - possible Grave's disease Will recheck her TFTs in 4 months for follow up (6) Situs inversus: 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 Bernal Code(s): I89.0 - Lymphedema, not elsewhere classified Category: Medical Plan: Continue HCTZ 12.5 mg Q AM She is reminded again that management of lymphedema is difficult and often involves a multimodal approach, including diuretics, compression stockings and leg elevation and even with these, it is often not possible to eliminate the symptoms completely and sometimes, the best that can be done is to minimize symptoms as best as possible Follow up with vascular surgery as scheduled (9) Vitamin D deficiency: Code(s): E55.9 - Vitamin D deficiency, unspecified Category: Medical Plan: Continue Vitamin D3 1000 units QD (10) Overactive bladder: Code(s): N32.81 - Overactive bladder Category: Medical Plan: We switched patient from Oxybutynin ER 15 mg QD to Myrbetriq ER 25 mg Q HS at her last visit, as Oxybutynin ER is reportedly not really helping her a lot It appears that Myrbetriq ER has also not been helping much as patient reports no significant improvement or changes in her symptoms Will consider referral to urology if her urinary symptoms persist or get worse - will hold off on this for now as patient resides in an assisted living facility up in [place] and it is somewhat difficult for her to get to her appointments without any help or assistance (11) Alternating constipation and diarrhea: Code(s): R19.8 - Other specified symptoms and signs involving the digestive system and abdomen Category: Medical Plan: She was referred to GI previously for further evaluation and management but patient decided she did not want to go and had her appt cancelled States that her GI symptoms have been well-controlled lately She is again encouraged to at least continue to increase her oral fluid intake and dietary fiber (12) Anxiety: Code(s): F41.9 - Anxiety disorder, unspecified Category: Medical Plan: Continue Citalopram 40 mg QD and Lorazepam 0.5 mg QD PRN Plan Follow up in 4 months Orders: Orders Comprehensive [place]. Panel Fast 4 Months E78.00 - Pure hypercholesterolemia, unspecified UA CC w/rflx Micro + Cult 4 Months R30.0 - Dysuria Vitamin D 25-OH Total 4 Months E55.9 - Vitamin D deficiency, unspecified Complete Blood Count Auto Diff 4 Months D64.9 - Anemia, unspecified Free T4 (Free Thyroxine) 4 Months E03.9 - Hypothyroidism, unspecified Thyroid Stimulating Hormone 4 Months E03.9 - Hypothyroidism, unspecified Lipid Panel 4 Months E78.00 - Pure hypercholesterolemia, unspecified Hemoglobin A1c 4 Months E11.9 - Type 2 diabetes mellitus without complications Microalbumin, Random (w Creat) 4 Months E11.9 - Type 2 diabetes mellitus without complications Vitamin B12 and Folate 4 Months E53.8 - Deficiency of other specified B group vitamins
[2025-03-16 13:35] VITALS: BP 112/68; PULSE 98; O2SAT 97; BMI 19.4
== END 2025-03-16 14:12 | disposition home or self-care (01) ==
LOC: HO.HMCH 13:28
PROVIDERS: PCP Internal Medicine; Visit Provider Internal Medicine
DX: E78.00 Pure hypercholesterolemia, unspecified (principal); E11.9 Type 2 diabetes mellitus without complications; I48.0 Paroxysmal atrial fibrillation; J44.9 Chronic obstructive pulmonary disease, unspecified; I25.10 Atherosclerotic heart disease of native coronary artery without angina pectoris; E03.9 Hypothyroidism, unspecified; Q89.3 Situs inversus; I89.0 Lymphedema, not elsewhere classified; E55.9 Vitamin D deficiency, unspecified; N32.81 Overactive bladder; R19.8 Other specified symptoms and signs involving the digestive system and abdomen; F41.9 Anxiety disorder, unspecified

== ENCOUNTER → 2025-03-16 13:28 | Outpatient (BNVA) | payer OTHER, SELFPAY | PROVIDERS: PCP Internal Medicine; Visit Provider Internal Medicine | DX: E03.9 Hypothyroidism, unspecified (principal); N32.81 Overactive bladder; E11.9 Type 2 diabetes mellitus without complications; E78.5 Hyperlipidemia, unspecified; I48.91 Unspecified atrial fibrillation; R35.0 Frequency of micturition; R35.1 Nocturia; E78.00 Pure hypercholesterolemia, unspecified; I48.0 Paroxysmal atrial fibrillation; I25.10 Atherosclerotic heart disease of native coronary artery without angina pectoris; Q89.3 Situs inversus; J44.9 Chronic obstructive pulmonary disease, unspecified; I89.0 Lymphedema, not elsewhere classified; E55.9 Vitamin D deficiency, unspecified; R19.8 Other specified symptoms and signs involving the digestive system and abdomen; F41.9 Anxiety disorder, unspecified; D64.9 Anemia, unspecified; E53.8 Deficiency of other specified B group vitamins; Z79.899 Other long term (current) drug therapy | CPT/HCPCS: 96127; 99212 ==